=== PATIENT | male | born 1960 | race Caucasian/White ===

== ENCOUNTER → 2017-09-04 07:00 | Outpatient (CLI) | payer OTHER, SELFPAY ==
[2017-09-04 08:51] LABS: Alanine Aminotransferase 47 IU/L (21-72); Albumin Globulin Ratio 1.6 (1.0-2.8); Alkaline Phosphatase 39 U/L (38-126); Aspartate Aminotransferase 23 IU/L (17-59); BUN Creatinine Ratio 17.8 (6-22); Bilirubin Total 0.7 mg/dL (0.2-1.3); Blood Urea Nitrogen 16 mg/dL (9-20); Calcium 9.4 mg/dL (8.4-10.2); Carbon Dioxide 26 mmol/L (22-32); Chloride 104 mmol/L (98-107); Cholesterol 140 mg/dL (140-199); Estimated Glomerular Filt Rate > 60.0 mL/min (>60); Globulin 2.5 g/dL (1.7-4.1); Glucose 91 mg/dL (70-100); HDL Cholesterol 47 mg/dL (40-60); HEMOLYSIS < 15 (0-50); LDL Cholesterol Calculated 71 mg/dL (<100); Potassium 4.3 mmol/L (3.4-5.1); Sodium 141 mmol/L (137-145); Total Protein 6.5 g/dL (6.3-8.2); Triglycerides 111 mg/dL (35-150)
== END ==
PROVIDERS: PCP Family Medicine; Visit Provider Internal Medicine Cardiovascular Disease
DX: I25.10 Atherosclerotic heart disease of native coronary artery without angina pectoris (principal)
CPT/HCPCS: 36415; 80053; 80061

== ENCOUNTER → 2017-10-12 06:56 | Outpatient (CLI) | payer OTHER, SELFPAY ==
[2017-10-12 07:34] LABS: Add Manual Diff / Slide Review NO; Eosinophils Percent Auto 2.5 % (2-4); Hematocrit 43.9 % (41-53); Hemoglobin 15.3 g/dL (13.5-17.5); Mean Corpuscular HGB Conc 34.9 % (30-36); Mean Corpuscular Hemoglobin 32.1 PG (26-34); Monocytes Percent Auto 12.4 % (3-14); Neutrophils Absolute Auto 2400 /uL (3000-5900); Neutrophils Percent Auto 55.1 % (50-75); Platelet Count 214 X10^3/uL (150-400); Red Blood Cell Count 4.77 X10^6/uL (4.5-5.9); Red Cell Distribution Width 12.8 % (11.6-14.8); White Blood Cell Count 4.4 X10^3/uL (4.5-11.0)
[2017-10-12 08:28] LABS: Thyroid Stimulating Hormone 3.24 uIU/mL (0.47-4.68)
[2017-10-13 18:26] LABS: Valproic Acid (Depakene) Total 55.3 mg/L (50.0-100.0)
== END ==
PROVIDERS: PCP Family Medicine; Visit Provider Psychiatry & Neurology Psychiatry
DX: Z79.899 Other long term (current) drug therapy (principal)
CPT/HCPCS: 36415; 80164; 84443; 85025

== ENCOUNTER → 2018-04-03 07:37 | Outpatient (CLI) | payer OTHER, SELFPAY ==
[2018-04-03 09:02] LABS: Alanine Aminotransferase 113 IU/L (21-72); Albumin 4.2 g/dL (3.5-5.0); Albumin Globulin Ratio 1.6 (1.0-2.8); Alkaline Phosphatase 40 U/L (38-126); Aspartate Aminotransferase 49 IU/L (17-59); BUN Creatinine Ratio 16.7 (6-22); Bilirubin Total 0.6 mg/dL (0.2-1.3); Blood Urea Nitrogen 15 mg/dL (9-20); Calcium 9.3 mg/dL (8.4-10.2); Carbon Dioxide 27 mmol/L (22-32); Chloride 103 mmol/L (98-107); Cholesterol 117 mg/dL (140-199); Estimated Glomerular Filt Rate > 60.0 mL/min (>60); Globulin 2.6 g/dL (1.7-4.1); Glucose 98 mg/dL (70-100); HDL Cholesterol 41 mg/dL (40-60); HEMOLYSIS < 15 (0-50); LDL Cholesterol Calculated 48 mg/dL (<100); Potassium 4.1 mmol/L (3.4-5.1); Sodium 142 mmol/L (137-145); Total Protein 6.8 g/dL (6.3-8.2); Triglycerides 138 mg/dL (35-150)
== END ==
PROVIDERS: Family Provider Family Medicine; PCP Family Medicine; Visit Provider Internal Medicine Cardiovascular Disease
DX: I25.10 Atherosclerotic heart disease of native coronary artery without angina pectoris (principal)
CPT/HCPCS: 36415; 80053; 80061

== ENCOUNTER → 2019-05-22 11:40 | Outpatient (CLI) | payer OTHER, SELFPAY ==
[2019-05-22 12:19] LABS: Influenza A - CEPHEID Flu A NEGATIVE (NEGATIVE); Influenza B - CEPHEID Flu B NEGATIVE (NEGATIVE)
== END ==
PROVIDERS: Family Provider Family Medicine; PCP Family Medicine; Visit Provider Family Medicine
DX: R05 Cough (principal); R50.9 Fever, unspecified
CPT/HCPCS: 87502

== ENCOUNTER → 2019-08-19 07:08 | Outpatient (CLI) | payer OTHER, SELFPAY ==
[2019-08-19 08:19] LABS: Add Manual Diff / Slide Review NO; Basophils Absolute Auto 0 /uL (0-100); Basophils Percent Auto 0.9 % (0-2); Eosinophils Absolute Auto 100 /uL (0-450); Eosinophils Percent Auto 3.3 % (2-4); Hematocrit 43.9 % (41-53); Hemoglobin 15.3 g/dL (13.5-17.5); Lymphocytes Absolute Auto 1100 /uL (1100-4500); Lymphocytes Percent Auto 29.7 % (25-40); Mean Corpuscular HGB Conc 34.8 % (30-36); Mean Corpuscular Hemoglobin 31.9 PG (26-34); Mean Corpuscular Volume 91.6 fL (80-100); Monocytes Absolute Auto 400 /uL (0-900); Monocytes Percent Auto 10.7 % (3-14); Neutrophils Absolute Auto 2100 /uL (1500-7000); Neutrophils Percent Auto 55.4 % (50-75); Platelet Count 214 X10^3/uL (150-400); Red Blood Cell Count 4.79 X10^6/uL (4.5-5.9); Red Cell Distribution Width 12.3 % (11.6-14.8); White Blood Cell Count 3.8 X10^3/uL (4.5-11.0)
[2019-08-19 08:51] LABS: Alanine Aminotransferase 95 IU/L (<50); Albumin 4.4 g/dL (3.5-5.0); Albumin Globulin Ratio 1.7 (1.0-2.8); Alkaline Phosphatase 36 U/L (38-126); Aspartate Aminotransferase 43 IU/L (17-59); BUN Creatinine Ratio 19.7 (6-22); Bilirubin Total 0.6 mg/dL (0.2-1.3); Blood Urea Nitrogen 15 mg/dL (9-20); Calcium 9.4 mg/dL (8.4-10.2); Carbon Dioxide 25 mmol/L (22-32); Chloride 104 mmol/L (98-107); Cholesterol 121 mg/dL (140-199); Estimated Glomerular Filt Rate > 60.0 mL/min (>60); Globulin 2.6 g/dL (1.7-4.1); Glucose 100 mg/dL (80-110); HDL Cholesterol 39 mg/dL (40-60); HEMOLYSIS < 15 (0-50); LDL Cholesterol Calculated 61 mg/dL (<100); Potassium 4.2 mmol/L (3.4-5.1); Sodium 138 mmol/L (137-145); Triglycerides 104 mg/dL (35-150)
[2019-08-19 09:56] LABS: Thyroid Stimulating Hormone 2.22 uIU/mL (0.47-4.68)
[2019-08-19 23:01] LABS: Valproic Acid (Depakene) Total 54 ug/mL (50-100)
== END ==
PROVIDERS: Family Provider Family Medicine; PCP Family Medicine; Referring Provider Psychiatry & Neurology Psychiatry; Visit Provider Psychiatry & Neurology Psychiatry
DX: Z79.899 Other long term (current) drug therapy (principal)
CPT/HCPCS: 36415; 80053; 80061; 80164; 84443; 85025

== ENCOUNTER → 2020-05-04 12:19 | Outpatient (CLI) | payer OTHER, SELFPAY ==
[2020-05-04] MEDS: COVID-19 VACC #1, MRNA(MOD) 100 MCG/0.5 ML VIAL IM (12:25)
== END ==
PROVIDERS: Visit Provider Internal Medicine
DX: Z23 Encounter for immunization (principal)
CPT/HCPCS: 0011A; 91301

== ENCOUNTER → 2020-05-12 11:52 | Outpatient (CLI) | payer OTHER, SELFPAY ==
[2020-05-12 12:54] LABS: COVID19 -Nasal RAPID Negative (Negative)
== END ==
PROVIDERS: Visit Provider Physician Assistant
DX: Z01.812 Encounter for preprocedural laboratory examination (principal); Z20.822 Contact with and (suspected) exposure to COVID-19
CPT/HCPCS: 87635

== ENCOUNTER 2020-05-14 13:24 | Day surgery (SDC) | payer OTHER, SELFPAY ==
--- NOTE | 2020-05-14 | PATH_ITS ---
[facility] Accession Number: [id number] . 01 Material submitted: . sigmoid colon - SIGMOID COLON . 02 Diagnosis: Sigmoid Colon, Biopsy: Hyperplastic polyp. MRV 05/19/2020 1201 Local . 02 Electronically signed: . Alexus Dao MD, Pathologist NPI- [id number] . 01 Gross description: . SIGMOID COLON: Received in formalin is 1 fragment(s) of coles, soft tissue measuring 0.5 x 0.3 x 0.2 cm submitted entirely in 1 cassette(s) /JESUS 05/17/2020 1908 Local . 02 Pathologist provided ICD-10: K63.5 . 02 CPT . 098213 Performed at: 01 [facility] [address] [id number] MD Reinaldo Bergeron MD Phone: [phone] Performed at: 02 [facility] [place] [address] [place], [place] [id number] MD Alexus Dao MD Phone: [phone]
--- NOTE | 2020-05-14 12:23 | PM.HP.1 ---
History of Present Illness History of Present Illness Date Patient Seen: 05/14/20 Chief complaint: [facility] Narrative: 59 Years Old Male seen today for consideration of a screening colonoscopy. Last colonoscopy in 2011, significant for internal and external hemorrhoids as well as poor prep but no gross lesions. Also, had a colonoscopy prior to that that was reportedly normal and had a poor prep as well. Recall 10 years with alternative prep recommended. Recently saw Dr. Alcala on 02/19/2020 complaining of constipation. Patient reported that he has to do a colonoscopy like prep just to have a bowel movement. Normally stools 3-4 times weekly with the aid of psyllium, MiraLAX, and stool softeners. Reports to holding behavior as of child. Associated hemorrhoids, currently bleeding. This is an ongoing problem for him, better when his constipation is improved. Denies abdominal pain or anemia. There's been no family history of colon cancer or colon polyps. Overall health issues have been stable, including no major cardiac events for at least 6 weeks. 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: [employer] Education: 16 years Glass of wine/day Alcohol drinks/day: 1/day Meds Home Medications and Allergies Home Medications Medication Instructions Recorded Confirmed Type aspirin 81 mg PO QDAY #0 12/28/15 05/14/20 History ezetimibe [Zetia] 10 mg PO QDAY #30 tab 12/28/15 History gabapentin [Neurontin] 300 mg PO BID #0 12/28/15 05/14/20 History nitroglycerin [Nitrostat] 0.4 mg SUBLINGUAL PRN PRN #0 12/18/16 05/14/20 History alprazolam 1 tab PO Q8H #0 12/19/16 05/14/20 History atorvastatin [Lipitor] 40 mg PO QDAY #0 12/19/16 05/14/20 History divalproex [Depakote] 500 mg PO BID #0 12/19/16 05/14/20 History verapamil 1 tab PO QDAY #0 12/19/16 05/14/20 History Allergies Allergy/AdvReac Type Severity Reaction Status Date / Time No Known Drug Allergies Allergy Verified 05/14/20 14:01 Review of Systems Review of Systems ROS: Yes All systems reviewed with the patient and are negative except as otherwise documented Exam Narrative Exam Narrative: General: well developed, well nourished, in no acute distress, Head: normocephalic and atraumatic, Lungs: normal respiratory effort, clear bilaterally to auscultation, no wheezes rales or rhonchi. Heart: normal rate and regular rhythm, no murmurs, rubs, gallops, or clicks, Abdomen: abdomen soft and non-tender without masses, organomegaly, or abdominal wall hernias, bowel sounds positive. Skin: intact without suspicious lesions or rashes, Psych: alert and cooperative; normal mood and affect; normal attention span and concentration; cognition, remote and recent memory appear to be intact, Assessment & Plan Assessment & Plan narrative: 1. Constipation 2. Hemorrhoids 3. Screening for colon cancer Plan for colonoscopy. The nature and character of the procedure as well as anticipated results were discussed. The possibility of not completing the procedure was also discussed. Possible complications including aspiration pneumonia, bleeding, perforation and reaction to medications either for sedation or preparation and missed lesions were discussed. Questions were answered and proceeding to the colonoscopy was elected. Informed consent signed. I sincerely appreciate the referral allowing me to participate in this patient's care. Please contact me with any questions or concerns.
--- NOTE | 2020-05-14 12:24 | PM.OP.ENDO ---
Operative Date/Time/Diagnoses Date of procedure: 05/14/20 Procedure Notes SCOAP/Timeout: 3:39 pm Procedure in detail: ENDOSCOPIST: Reina Mayfield MD Sedation RN: Michelle Fair RN Sedation start time: 3:40 p.m. Sedation end time: 4:13 p.m. PROCEDURE: Colonoscopy with biopsy INDICATIONS: 1. Constipation 2. Hemorrhoids 3. Screening for colon cancer MEDICATION: Levsin 0.125 mg sublingual, incremental doses of Versed and fentanyl until appropriate level sedation achieved. ASA CLASS: 2 CECAL WITHDRAWAL TIME: 9 minutes COMPLICATIONS: None. EXTENT OF PROCEDURE: Cecum. QUALITY OF PREP: Good with portions of liquid stool. PROCEDURE: Prior to insertion of the colonoscope, a digital rectal examination was accomplished with circumferential palpation of the distal rectal mucosa without significant findings being noted. The high-definition colonoscope was passed into the rectum in the usual fashion and advanced over to the cecum without difficulty. The ileocecal valve, appendiceal stoma, and medial wall all could be inspected and no abnormalities were seen. ASCENDING COLON: As the colonoscope was withdrawn, care was taken to expose and inspect the haustral folds and no abnormalities were seen. HEPATIC FLEXURE: Normal, no polyps, diverticula or other abnormalities. TRANSVERSE COLON: Normal, no polyps, diverticula or other abnormalities. DESCENDING COLON: Normal, no polyps, diverticula or other abnormalities. SIGMOID COLON: 2 mm polyp removed with cold biopsy forceps, otherwise, no diverticula or other abnormalities. RECTUM: Normal. J maneuver was produced. There was no significant perianal disease. The J maneuver was broken. The remainder of the rectum was inspected and there was minor external hemorrhoid disease. The scope was withdrawn. IMPRESSION: 1. Sigmoid polyp x1, 2 mm, removed with cold biopsy forceps 2. External hemorrhoids, mild PLAN: 1. Follow-up in clinic status post pathology results. The possibility of a missed lesion including a malignancy has been discussed with the patient previously. Potential alarm symptoms have been discussed and should be reported immediately.
[2020-05-14] MEDS: LACTATED RINGERS 1,000 ML 200 ML IV (14:12)
[2020-05-14] MEDS: HYOSCYAMINE 0.125 MG TABLET PO (14:27)
[2020-05-14 14:28] VITALS: BP 135/81; PULSE 71; RESP 20; TEMP 36.4; O2SAT 96; BMI 35.2
[2020-05-14] MEDS: MIDAZOLAM 5 MG/5 ML VIAL IV (15:47)
[2020-05-14] MEDS: fentaNYL 250 MCG/5 ML INJ IV (15:53)
[2020-05-14 16:17] VITALS: BP 147/89; PULSE 73; RESP 12; TEMP 37.3; O2SAT 96
[2020-05-14 16:22] VITALS: BP 142/89; PULSE 80; RESP 16; O2SAT 98
[2020-05-14 16:27] VITALS: BP 146/93; PULSE 76; RESP 12; O2SAT 97
[2020-05-14 16:34] VITALS: BP 147/95; PULSE 74; RESP 16; TEMP 37; O2SAT 96
== END 2020-05-14 16:50 | disposition home or self-care (01) ==
PROVIDERS: Referring Provider Student in an Organized Health Care Education/Training Program; Visit Provider Student in an Organized Health Care Education/Training Program
PROC: 0DJD8ZZ Inspection of Lower Intestinal Tract, Via Natural or Artificial Opening Endoscopic (ICD-10-PCS; CPT 45378; principal; 2020-05-14 15:15)
DX: K59.00 Constipation, unspecified (principal); K21.9 Gastro-esophageal reflux disease without esophagitis; E78.5 Hyperlipidemia, unspecified; F32.9 Major depressive disorder, single episode, unspecified; K64.4 Residual hemorrhoidal skin tags; K63.5 Polyp of colon
CPT/HCPCS: 45380; J2250; J3010

== ENCOUNTER → 2020-06-01 12:26 | Outpatient (CLI) | payer OTHER, SELFPAY ==
[2020-06-01] MEDS: COVID-19 VACC #2, MRNA(MOD) 100 MCG/0.5 ML VIAL IM (12:36)
== END ==
PROVIDERS: Visit Provider Internal Medicine
DX: Z23 Encounter for immunization (principal)
CPT/HCPCS: 0012A; 91301

== ENCOUNTER 2020-08-22 17:46 | Observation (INO) | payer OTHER, SELFPAY ==
[2020-08-22] VITALS (7 sets, daily range): BP systolic 122–179; BP diastolic 48–86; PULSE 64–78; RESP 11–25; TEMP 36.4–36.7; O2SAT 96–99; BMI 27.8
--- NOTE | 2020-08-22 17:56 | DI.CT.S_ITS ---
PROCEDURE: CT HEAD/BRAIN WO CON INDICATIONS: vision changes withheadache TECHNIQUE: Noncontrast 4.5 mm thick angled axial sections acquired from the foramen magnum to the vertex, with coronal and sagittal reformats. For radiation dose reduction, the following was used: automated exposure control, adjustment of mA and/or kV according to patient size. COMPARISON: CT, HEAD WITHOUT CONTRAST, 06/13/2010, 11:02. FINDINGS: Image quality: Excellent. CSF spaces: Basal cisterns are patent. No extra-axial fluid collections. Ventricles are normal in size and shape. Brain: No midline shift. No intracranial hemorrhage. Duran-white matter interface is normal. Hypoattenuation is noted the posterior fossa suggestive of arachnoid cyst. Skull and face: Calvarium and visualized facial bones are intact, without suspicious lesions. Sinuses: Visualized sinuses and mastoids are clear. IMPRESSION: 1. No acute intracranial process. Dictated by: Chiara Cope M.D. on 08/22/2020 at 18:15 Approved by: Chiara Cope M.D. on 08/22/2020 at 18:16
--- NOTE | 2020-08-22 18:03 | ED_ITS ---
HPI - General Adult General Chief complaint: Neuro Symptoms/Deficit Stated complaint: vision issues, since 1714,blurry, lines Time Seen by Provider: 08/22/20 17:54 Source: patient Mode of arrival: Ambulatory Limitations: no limitations History of Present Illness HPI narrative: Patient is a 60-year-old male. Has a history of coronary artery disease. Had a stent placed several years ago but states that he never had a heart attack prior to this. No history of stroke. Not on anticoagulation. Has never had any procedures performed on his eyes however he does wear corrective lenses. He states that approximately 515 this afternoon he was looking at something on his 's phone when he had some vision disturbances. It is somewhat difficult for him to describe but he states that there were horizontal lines in his vision. There were multiple of these lines. He felt like the objects above the lines and below the lines did not match up. They are also very blurry. Since that time he has also developed a slight headache. At the time of my evaluation he thought that the vision issues had improved since the onset however they were not completely resolved. He did state that they were present whenever he closed each of his eyes individually. He thought it was potentially the phone that he was looking at so he looked to TV screen insult the same disturbances. He does have ringing in his ears but this is not new for him. He has been taking all of his medications as directed. There are no reports of any speech disturbances. Related Data Home Medications Medication Instructions Recorded Confirmed aspirin 81 mg PO QDAY #0 12/28/15 08/22/20 ezetimibe [Zetia] 10 mg PO QDAY #30 tab 12/28/15 08/22/20 gabapentin [Neurontin] 300 mg PO BID #0 12/28/15 08/22/20 nitroglycerin [Nitrostat] 0.4 mg SUBLINGUAL PRN PRN #0 12/18/16 08/22/20 alprazolam 1 tab PO Q8H #0 12/19/16 05/14/20 atorvastatin [Lipitor] 40 mg PO QDAY #0 12/19/16 05/14/20 divalproex [Depakote] 500 mg PO BID #0 12/19/16 08/22/20 verapamil 1 tab PO QDAY #0 12/19/16 08/22/20 clonazepam 0.25 mg PO BEDTIME 08/22/20 08/22/20 rosuvastatin 40 mg PO BEDTIME 08/22/20 08/22/20 Allergies Allergy/AdvReac Type Severity Reaction Status Date / Time No Known Drug Allergies Allergy Verified 08/22/20 17:58 Review of Systems Constitutional Constitutional: Denies chills, Denies fever(s) and Reports headache(s) Eyes Eyes: Reports blurry vision and Reports change in vision ENT Ears, Nose, Mouth, and Throat: Denies vertigo, Denies dizziness, Reports hea dache(s) and Denies sore throat Cardiovascular Cardiovascular: Denies chest pain and Denies dyspnea Respiratory Respiratory: Denies dyspnea Gastrointestinal Gastrointestinal: Denies abdominal pain, Denies nausea and Denies vomiting Musculoskeletal Musculoskeletal: Denies arthralgias and Denies myalgias Integumentary/Breasts Skin/Breast: Denies rash Neurologic Neurologic: Denies abnormal speech, Denies vertigo, Denies dizziness and Reports headache(s) Psychiatric Psychiatric: Denies anxiety Endocrine Endocrine: Reports system reviewed and no additional complaints, except as documented Hematologic/Lymphatic On Anticoagulants: No Allergic/Immunologic Allergic/Immunologic: Reports system reviewed and no additional complaints, except as documented Patient History Medical History Acute coronary syndrome Anxiety Social History household members: spouse Smoking Status: Never smoker Smoking Status: Never smoker alcohol intake frequency: a few times a month Alcohol type: wine Substance Use Type: does not use Exam Initial Vital Signs Initial Vital Signs: Vital Signs Temperature 98 F 08/22/20 17:55 Pulse Rate 78 08/22/20 17:55 Respiratory Rate 12 08/22/20 17:55 Blood Pressure 179/86 H 08/22/20 17:55 Pulse Oximetry 99 08/22/20 17:55 Const General: cooperative, healthy appearing and comfortable Limitations: mental status not altered HENTX Head: normal to inspection and normocephalic Ears: hearing grossly normal bilaterally Face and sinus: normal facial exam Mouth: oral mucosae normal Eyes General: appearance normal, both eyes and all related structures Pupils: PERRL EOM: EOM intact bilaterally Resp Effort & Inspection: normal respiratory effort Auscultation: clear to auscultation bilaterally Cardio Rate: regular rate Rhythm: regular rhythm GI Inspection: non-distended Palpation: soft and No firm Skin Lesions: no lesions Rashes: no rashes Neuro General: patient alert, patient awake and patient oriented x3 Cranial Nerves: PERRL Cognition: normal cognition Speech: speech normal Gait: normal gait Motor: muscle tone normal throughout Sensory Exam: no sensory deficits noted Extrem General: normal to inspection and capillary refill normal Psych Appearance: grossly normal and well kempt Scores GCS Cressey coma scale eye opening: Spontaneous Kristyn coma scale verbal response: Orientated Cressey coma scale motor response: Obey commands Cressey coma scale total score: 15 NIH Stroke Scale Level of Conciousness: Alert, keenly responsive Ask month/age: Answers both questions correctly. Open/close eyes, close hand: Performs both tasks correctly Best gaze horizontal: Normal Visual hayes: No visual loss Facial palsy: Normal symetrical movement Left arm drift: No drift for full 10 sec Right arm drift: No drift for full 10 sec Left leg drift: No drift for full 5 sec Right leg drift: No drift for full 5 sec Limb ataxia: Absent Sensory on face/arms/legs: Normal, no sensory loss Best language: No aphasia, normal Dysarthria: Normal Extinction or inattention: No abnormality Total NIH Stroke scale score: 0 Course Orders Ordered: ED Orders 08/22/20 17:56 CT head/brain wo con Stat EKG-12 Lead Stat 08/22/20 18:12 C-Reactive Protein Quant Stat Complete Blood Count AUTO DIFF Stat Comprehensive Metabolic Panel Stat Erythrocyte Sedimentation Rate Stat Ethanol (ETOH) Stat Lipase Stat Partial Thromboplastin Time Stat Prothrombin Time INR Stat Troponin & CK Cardiac Panel Stat 08/22/20 19:50 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) Stat 08/22/20 19:52 Consult to Physician Urgent 08/22/20 19:53 Consult to Physician Stat MR stroke Stat Acetaminophen (Acetaminophen 325 Mg Tablet) 650 mg PO Q6HR PRN PRN Reason: Fever/Mild Pain (1-3) Alprazolam (Alprazolam 0.25 Mg Tablet) 0.25 mg PO Q8H [facility] Last Admin: 08/22/20 21:30 Dose: 0.25 mg Documented by: CTRNATANAEL Divalproex Sodium (Divalproex Dr 250 Mg Tablet) 500 mg PO BID [facility] Last Admin: 08/22/20 21:30 Dose: 500 mg Documented by: ABBY Gabapentin (Gabapentin 300 Mg Capsule) 300 mg PO BID [facility] Last Admin: 08/22/20 21:30 Dose: 300 mg Documented by: ABBY Lorazepam (Lorazepam 0.5 Mg Tablet) 0.5 mg PO Q4HR PRN PRN Reason: Anxiety Verapamil HCl (Verapamil Sr 120 Mg Tablet) 120 mg PO DAILY FARRAH Discontinued Medications Aspirin (Aspirin 81 Mg Chew Tab) 324 mg PO NOW ONE Stop: 08/22/20 19:54 Last Admin: 08/22/20 20:00 Dose: 324 mg Documented by: BRYAN Non-Formulary Medication (Divalproex [Depakote]) 500 mg PO BID [facility] Vital Signs Vital signs: Vital Signs - 8 hr 08/22/20 17:55 08/22/20 18:13 08/22/20 18:30 Temperature 98 F Pulse Rate 78 73 73 Respiratory Rate 12 11 L Blood Pressure 179/86 H Pulse Oximetry 99 99 96 08/22/20 19:00 08/22/20 19:30 Temperature Pulse Rate 73 75 Respiratory Rate 25 H Blood Pressure 132/82 Pulse Oximetry 97 96 Medical Decision Making Lab Data Lab results reviewed: Yes I reviewed the patient's lab results. Result diagrams: 08/22/20 18:12 08/22/20 18:12 Labs: Lab Results 08/22/20 08/22/20 08/22/20 Range/Units 18:12 18:12 18:12 WBC 6.5 (4.5-11.0) X10^3/uL RBC 4.76 (4.5-5.9) X10^6/uL Hgb 15.3 (13.5-17.5) g/dL Hct 43.9 (41-53) % MCV 92.1 (80-100) fL MCH 32.1 (26-34) PG MCHC 34.8 (30-36) % RDW 12.4 (11.6-14.8) % Plt Count 204 (150-400) X10^3/uL Neut % (Auto) 55.1 (50-75) % Lymph % (Auto) 32.0 (25-40) % Dillon % (Auto) 9.8 (3-14) % Eos % (Auto) 2.4 (2-4) % Baso % (Auto) 0.7 (0-2) % Neut # (Auto) 3600 (5104-4980) /uL Lymph # (Auto) 2100 (5164-4919) /uL Dillon # (Auto) 600 (0-900) /uL Eos # (Auto) 200 (0-450) /uL Baso # (Auto) 0 (0-100) /uL ESR (0-15) MM/HR PT 11.5 (10.1-12.7) SECONDS INR 1.0 (0.9-1.3) APTT 32 (26.4-36.2) SECONDS Sodium 137 (137-145) mmol/L Potassium 3.9 (3.4-5.1) mmol/L Chloride 103 (98-107) mmol/L Carbon Dioxide 27 (22-32) mmol/L BUN 21 H (9-20) mg/dL Creatinine 0.81 (0.66-1.25) mg/dL Estimated GFR > 60.0 (>60) mL/min BUN/Creatinine Ratio 25.9 H (6-22) Glucose 118 H (80-110) mg/dL Calcium 10.0 (8.4-10.2) mg/dL Total Bilirubin 0.4 (0.2-1.3) mg/dL AST 40 (17-59) IU/L ALT 64 H (<50) IU/L Alkaline Phosphatase 38 (38-126) U/L Total Creatine Kinase 136 (55-170) U/L CK-MB (CK-2) 1.14 (<2.37) ng/mL CK-MB (CK-2) Rel Index 0.8 L (1.5-5.0) % Troponin I < 0.012 (0.01-0.034) ng/mL C-Reactive Protein (<1.0) mg/dL Total Protein 7.1 (6.3-8.2) g/dL Albumin 4.4 (3.5-5.0) g/dL Globulin 2.7 (1.7-4.1) g/dL Albumin/Globulin Ratio 1.6 (1.0-2.8) Lipase 132 (23-300) U/L Ethyl Alcohol < 10 ( - 10) mg/dL SARS-CoV-2 (PCR) (Negative) 08/22/20 08/22/20 08/22/20 Range/Units 18:12 18:12 19:50 WBC (4.5-11.0) X10^3/uL RBC (4.5-5.9) X10^6/uL Hgb (13.5-17.5) g/dL Hct (41-53) % MCV (80-100) fL MCH (26-34) PG MCHC (30-36) % RDW (11.6-14.8) % Plt Count (150-400) X10^3/uL Neut % (Auto) (50-75) % Lymph % (Auto) (25-40) % Dillon % (Auto) (3-14) % Eos % (Auto) (2-4) % Baso % (Auto) (0-2) % Neut # (Auto) (6356-5019) /uL Lymph # (Auto) (3910-3448) /uL Dillon # (Auto) (0-900) /uL Eos # (Auto) (0-450) /uL Baso # (Auto) (0-100) /uL ESR 1 (0-15) MM/HR PT (10.1-12.7) SECONDS INR (0.9-1.3) APTT (26.4-36.2) SECONDS Sodium (137-145) mmol/L Potassium (3.4-5.1) mmol/L Chloride (98-107) mmol/L Carbon Dioxide (22-32) mmol/L BUN (9-20) mg/dL Creatinine (0.66-1.25) mg/dL Estimated GFR (>60) mL/min BUN/Creatinine Ratio (6-22) Glucose (80-110) mg/dL Calcium (8.4-10.2) mg/dL Total Bilirubin (0.2-1.3) mg/dL AST (17-59) IU/L ALT (<50) IU/L Alkaline Phosphatase (38-126) U/L Total Creatine Kinase (55-170) U/L CK-MB (CK-2) (<2.37) ng/mL CK-MB (CK-2) Rel Index (1.5-5.0) % Troponin I (0.01-0.034) ng/mL C-Reactive Protein < 0.5 (<1.0) mg/dL Total Protein (6.3-8.2) g/dL Albumin (3.5-5.0) g/dL Globulin (1.7-4.1) g/dL Albumin/Globulin Ratio (1.0-2.8) Lipase (23-300) U/L Ethyl Alcohol ( - 10) mg/dL SARS-CoV-2 (PCR) Negative (Negative) Imaging Data CT scan - head: Radiologist's Impression: [address] [id number] Scan ReportSigned Patient: Hermelindo De Souza JMR#: [id number]: 9Acct:[id number]/Sex: 60 / MDate of Service: 08/22/20Loc: EDAccession Number: [id number] Procedure: CT head/brain wo con Ordering Provider: Sebastian Son D.O. PROCEDURE: CT HEAD/BRAIN WO CON INDICATIONS: vision changes withheadache TECHNIQUE: Noncontrast 4.5 mm thick angled axial sections acquired from the foramen magnum to the vertex, with coronal and sagittal reformats. For radiation dose reduction, the following was used: automated exposure control, adjustment of mA and/or kV according to patient size. COMPARISON: CT, HEAD WITHOUT CONTRAST, 06/13/2010, 11:02. FINDINGS: Image quality: Excellent. CSF spaces: Basal cisterns are patent. No extra-axial fluid collections. Ventricles are normal in size and shape. Brain: No midline shift. No intracranial hemorrhage. Duran-white matter interface is normal. Hypoattenuation is noted the posterior fossa suggestive of arachnoid cyst. Skull and face: Calvarium and visualized facial bones are intact, without suspicious lesions. Sinuses: Visualized sinuses and mastoids are clear. IMPRESSION: 1. No acute intracranial process. Dictated by: Chiara Cope M.D. on 08/22/2020 at 18:15 Approved by: Chiara Cope M.D. on 08/22/2020 at 18:16 ECG Data Attestation: I personally reviewed and interpreted this ECG as follows: Prior ECG tracings: not available for review Interpretation: Sinus rhythm Ventricular rate is 76 One PVC Normal QRS Normal QTC Incomplete right bundle-branch block No ST T wave changes MDM Narrative Medical decision making narrative: Patient is a NIH score of 0. His head CT is unremarkable. EKG is unremarkable. Labs are unremarkable. Upon reexamination he reports that his symptoms have even improved since arrival here to the ER but again are not completely gone. I do feel that the patient requires an MRI for further evaluation. We are unable to get that of the emergency department at this time of day. Discussed the case with Dr. Wilkerson who is on-call for the patient's primary provider and we will admit for further evaluation and treatment. Did discuss this with the patient as well and he expressed underst anding agreement. Discharge Plan Departure Patient Disposition: Admitted as Observation Clinical Impression: Transient cerebral ischemia, Vision disturbance Admit Date/Time: 08/22/20 20:44 Admit Provider: Andrea Nevarez
[2020-08-22 18:26] LABS: Add Manual Diff / Slide Review NO; Basophils Absolute Auto 0 /uL (0-100); Basophils Percent Auto 0.7 % (0-2); Eosinophils Absolute Auto 200 /uL (0-450); Eosinophils Percent Auto 2.4 % (2-4); Hematocrit 43.9 % (41-53); Hemoglobin 15.3 g/dL (13.5-17.5); Lymphocytes Absolute Auto 2100 /uL (1100-4500); Mean Corpuscular HGB Conc 34.8 % (30-36); Mean Corpuscular Hemoglobin 32.1 PG (26-34); Mean Corpuscular Volume 92.1 fL (80-100); Monocytes Absolute Auto 600 /uL (0-900); Monocytes Percent Auto 9.8 % (3-14); Neutrophils Absolute Auto 3600 /uL (1500-7000); Neutrophils Percent Auto 55.1 % (50-75); Platelet Count 204 X10^3/uL (150-400); Red Blood Cell Count 4.76 X10^6/uL (4.5-5.9); Red Cell Distribution Width 12.4 % (11.6-14.8); White Blood Cell Count 6.5 X10^3/uL (4.5-11.0)
[2020-08-22 18:40] LABS: Prothrombin Time 11.5 SECONDS (10.1-12.7)
[2020-08-22 18:43] LABS: Alanine Aminotransferase 64 IU/L (<50); Albumin 4.4 g/dL (3.5-5.0); Albumin Globulin Ratio 1.6 (1.0-2.8); Alkaline Phosphatase 38 U/L (38-126); Aspartate Aminotransferase 40 IU/L (17-59); BUN Creatinine Ratio 25.9 (6-22); Bilirubin Total 0.4 mg/dL (0.2-1.3); Blood Urea Nitrogen 21 mg/dL (9-20); Carbon Dioxide 27 mmol/L (22-32); Chloride 103 mmol/L (98-107); Creatine Kinase 136 U/L (55-170); Estimated Glomerular Filt Rate > 60.0 mL/min (>60); Ethanol (ETOH) < 10 mg/dL; Globulin 2.7 g/dL (1.7-4.1); Glucose 118 mg/dL (80-110); HEMOLYSIS 19 (0-50); Lipase 132 U/L (23-300); PTT Partial Thromboplastin Tim 32 SECONDS (26.4-36.2); Potassium 3.9 mmol/L (3.4-5.1); Sodium 137 mmol/L (137-145); Total Protein 7.1 g/dL (6.3-8.2)
[2020-08-22 18:53] LABS: Troponin I < 0.012 ng/mL (0.01-0.034)
[2020-08-22 18:57] LABS: CKMB % Relative Index 0.8 % (1.5-5.0); Creatine Kinase MB 1.14 ng/mL (<2.37)
--- NOTE | 2020-08-22 19:33 | PC.NURSE ---
Patient reports some improvement in vision, reports still slightly blurry but white lines and peripheral disturbances have subsided. Denies double vision
--- NOTE | 2020-08-22 19:53 | DI.MRI.S_ITS ---
PROCEDURE: MR STROKE Pre- and post-contrast brain MRI, non-contrast brain MR angiogram, pre- and postcontrast neck MR angiogram INDICATIONS: Vision changes eval for stroke TECHNIQUE: Brain: Noncontrast axial T1 spin echo, axial T2 fast spin echo, sagittal and axial FLAIR, coronal T2 fast spin echo, axial gradient echo, axial diffusion and ADC through the brain. After the administration of contrast, axial 3D VIBE of the cranial vasculature and brain. Brain MRA: Non-contrast 3-D time of flight MR angiogram, with multiple tudlrrt-luaafiiju-qynwhudijc (MIP) reformats performed. Neck MRA: Axial and sagittal TruFISP through the neck. Coronal dynamic MR angiogram during administration of contrast in the arterial and venous phases, with 3-dimenstional ltpijfg-ukqzepkwg-rhrwiaedee (MIP) reformats constructed from subtraction images. COMPARISON: [facility], CT, CT HEAD/BRAIN WO CON, 08/22/2020, 18:00. FINDINGS: Image quality: Excellent. BRAIN: CSF spaces: Ventricles are normal in size and shape. Basal cisterns are patent. No extra-axial fluid collections. Brain: No intracranial bleeds or mass effects. Duran-white matter interface is normal. Diffusion weighted images show no acute ischemic insults. Brainstem appears normal. Normal intravascular flow voids are present. No abnormal intracranial enhancement. Skull and face: Calvarial marrow signal is normal. Orbits appear normal. Sinuses: Sinuses and mastoids are clear. BRAIN MR ANGIOGRAM: Anterior circulation: Intracranial internal carotid arteries are normal in size and enhancement. The flow within the paired anterior cerebral arteries is normal and symmetric. The flow within the middle cerebral arteries is normal and symmetric. The anterior communicating artery is seen. No stenoses, occlusions, or aneurysms. Posterior circulation: The visualized portions of the vertebral arteries demonstrate normal caliber, and join to form a normal appearing basilar artery. The flow within the posterior cerebral arteries is normal and symmetric. No stenoses, occlusions, or aneurysms. NECK MR ANGIOGRAM: Carotids: Great vessels demonstrate a conventional anatomy as they arise from the aortic arch. The origins of the common carotid arteries appear patent. The calibers and courses of both common carotid arteries are normal. The bifurcation regions appear normal bilaterally. The internal carotid arteries demonstrate normal course and caliber. Posterior circulation: The origins of the vertebral arteries appear patent. More superior portions of both vertebral arteries demonstrate normal course and caliber, and join to form a normal appearing basilar artery. Miscellaneous: Subclavian arteries appear patent. Pre-contrast images through the neck show no soft tissue abnormalities. IMPRESSION: BRAIN MRI: No acute infarct or other acute intracranial abnormality. BRAIN MR ANGIOGRAM: No large vessel occlusion or hemodynamically significant narrowing of the major intracranial arterial circulation. NECK MR ANGIOGRAM: No hemodynamically significant narrowing of the major extracranial arterial circulation. Dictated by: Kemar Ventura M.D. on 08/23/2020 at 11:28 Approved by: Kemar Ventura M.D. on 08/23/2020 at 11:32
[2020-08-22] MEDS: ASPIRIN 81 MG CHEW TAB 324 MG PO (20:00)
[2020-08-22 20:14] LABS: C-Reactive Protein Quant < 0.5 mg/dL (<1.0)
[2020-08-22 20:29] LABS: Erythrocyte Sedimentation Rate 1 MM/HR (0-15)
[2020-08-22 20:55] LABS: COVID19 - ADMIT (NP swab/PCR) Negative (Negative)
[2020-08-22] MEDS: DIVALPROEX DR 250 MG TABLET 500 MG PO (21:30)
[2020-08-22] MEDS: GABAPENTIN 300 MG CAPSULE PO (21:30)
[2020-08-22] MEDS: ALPRAZolam 0.25 MG TABLET PO (21:30)
--- NOTE | 2020-08-22 21:37 | PM.HP.1 ---
History of Present Illness History of Present Illness Date Patient Seen: 08/22/20 Time Patient Seen: 21:37 Date of Onset of Symptoms: 08/22/20 Chief complaint: vision issues, since 1714,blurry, lines Narrative: 60-year-old male presents to emergency department with complaints of visual changes and a slight headache. Patient was in his usual state of health today he was at home and when his handed his phone to him and he looked at it he saw horizontal once that were shifting. They were in his entire vision and then his eyes became blurry in the knee had sensation of halo with the horizontal lines in the periphery. This then resolved and he developed a dull headache and he still has a headache. He has no associated symptoms. He had no dysarthria or difficulty swallowing or difficulty with motor or fine motor or gait. He had no associated chest pain shortness breath palpitations lightheadedness dizziness. No neurologic symptoms. He was recently started on pramipexole by his psychiatrist for concern about early Parkinson's disease. He recently saw his new PCP in the last month. Past medical history: 1. Bipolar disorder 2. Coronary artery disease status post PTCA and stent in 2016 without further problems 3. Hyperlipidemia 4. GERD 5. Colonic polyps, recent colonoscopy was in May of 2020 showing benign polyps 6. Constipation 7. Shingles Allergies no known drug allergies Medications: Rosuvastatin 40 mg daily Zetia 10 mg daily Verapamil 120 mg daily Gabapentin 300 mg twice daily Depakote ER 500 mg twice daily Clonazepam 0.25 mg as needed Nitrostat as needed Aspirin 81 mg daily Past surgical history 1. 2000 he had a sinus surgery 2001 he had a knee surgery He has had 2 colonoscopies Family history: Father likely had bipolar but was not treated. 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 He is originally from [place] town there and has lived in and a [place] for last 20 years and works from home. He is and lives with his in [facility] He has 1 child Health related behavior he has 1 glass 1 a day Does not smoke Does not use illicit drugs Had tetanus shot 07/29/2020 Pneumovax [id number] Shingrix vaccine 06/18/2027 and 09/23/2019 COVID vaccine 05/04/2020 and 06/01/2020 Review of systems: Negative for chest pain, palpitations, lightheadedness, dizziness Negative for any neurologic symptoms Recently started on pramipexole No GI or problems Patient History Family & Social History Social History: household members spouse Safety & Behavioral: Feels Safe in Current Yes Environment Been Physically Hurt or No Threatened By a Person Tobacco & Substance use: Smoking Status Never smoker alcohol intake frequency a few times a month Substance Use Type does not use Meds Home Medications and Allergies Home Medications Medication Instructions Recorded Confirmed Type aspirin 81 mg PO QDAY #0 12/28/15 08/22/20 History ezetimibe [Zetia] 10 mg PO QDAY #30 tab 12/28/15 08/22/20 History gabapentin [Neurontin] 300 mg PO BID #0 12/28/15 08/22/20 History nitroglycerin [Nitrostat] 0.4 mg SUBLINGUAL PRN PRN #0 12/18/16 08/22/20 History alprazolam 1 tab PO Q8H #0 12/19/16 05/14/20 History atorvastatin [Lipitor] 40 mg PO QDAY #0 12/19/16 05/14/20 History divalproex [Depakote] 500 mg PO BID #0 12/19/16 08/22/20 History verapamil 1 tab PO QDAY #0 12/19/16 08/22/20 History clonazepam 0.25 mg PO BEDTIME 08/22/20 08/22/20 History rosuvastatin 40 mg PO BEDTIME 08/22/20 08/22/20 History Allergies Allergy/AdvReac Type Severity Reaction Status Date / Time No Known Drug Allergies Allergy Verified 08/22/20 17:58 Review of Systems Review of Systems Narrative: Negative other than HPI Exam Vital Signs (past 8 hours): - 08/22/20 17:55 08/22/20 18:13 08/22/20 18:30 Temperature 98 F Pulse Rate 78 73 73 Respiratory Rate 12 11 L Blood Pressure 179/86 H Pulse Oximetry 99 99 96 08/22/20 19:00 08/22/20 19:30 Temperature Pulse Rate 73 75 Respiratory Rate 25 H Blood Pressure 132/82 Pulse Oximetry 97 96 Oxygen Delivery Method Room Air Narrative Exam Narrative: Afebrile, vital signs are stable. Blood pressure is now down to normal. Patient appears very healthy and younger than stated age. He is lying comfortably in the hospital bed in his excellent historian HEENT: Unremarkable Neck: Supple without adenopathy Chest: Clear to auscultation without wheezes rhonchi or crackles Cor: Regular rate and rhythm without any murmurs Abdomen: Positive bowel sounds, soft, nontender, nondistended Extremities: No edema, pulses intact Neurologic exam is within normal limits. Cranial nerves 2-12 are intact. Romberg is negative. Heel to hays and [id number] are negative. No evidence of cogwheeling. Strength is symmetric and intact bilateral upper and lower extremities and sensations intact to light touch as well as DTRs. Skin no rashes Objective Labs Result Diagrams: 08/22/20 18:12 08/22/20 18:12 Labs: Laboratory Results - last 24 hr 08/22/20 08/22/20 08/22/20 18:12 18:12 18:12 WBC 6.5 RBC 4.76 Hgb 15.3 Hct 43.9 MCV 92.1 MCH 32.1 MCHC 34.8 RDW 12.4 Plt Count 204 Neut % (Auto) 55.1 Lymph % (Auto) 32.0 [place] % (Auto) 9.8 Eos % (Auto) 2.4 Baso % (Auto) 0.7 Neut # (Auto) 3600 Lymph # (Auto) 2100 [place] # (Auto) 600 Eos # (Auto) 200 Baso # (Auto) 0 ESR PT 11.5 INR 1.0 APTT 32 Sodium 137 Potassium 3.9 Chloride 103 Carbon Dioxide 27 BUN 21 H Creatinine 0.81 Estimated GFR > 60.0 BUN/Creatinine Ratio 25.9 H Glucose 118 H Calcium 10.0 Total Bilirubin 0.4 AST 40 ALT 64 H Alkaline Phosphatase 38 Total Creatine Kinase 136 CK-MB (CK-2) 1.14 CK-MB (CK-2) Rel Index 0.8 L Troponin I < 0.012 C-Reactive Protein Total Protein 7.1 Albumin 4.4 Globulin 2.7 Albumin/Globulin Ratio 1.6 Lipase 132 Ethyl Alcohol < 10 SARS-CoV-2 (PCR) 08/22/20 08/22/20 08/22/20 18:12 18:12 19:50 WBC RBC Hgb Hct MCV MCH MCHC RDW Plt Count Neut % (Auto) Lymph % (Auto) [place] % (Auto) Eos % (Auto) Baso % (Auto) Neut # (Auto) Lymph # (Auto) [place] # (Auto) Eos # (Auto) Baso # (Auto) ESR 1 PT INR APTT Sodium Potassium Chloride Carbon Dioxide BUN Creatinine Estimated GFR BUN/Creatinine Ratio Glucose Calcium Total Bilirubin AST ALT Alkaline Phosphatase Total Creatine Kinase CK-MB (CK-2) CK-MB (CK-2) Rel Index Troponin I C-Reactive Protein < 0.5 Total Protein Albumin Globulin Albumin/Globulin Ratio Lipase Ethyl Alcohol SARS-CoV-2 (PCR) Negative Assessment & Plan Assessment & Plan narrative: 60-year-old male with possible TIA versus new onset of migraine with aura Will admit to the hospital for further monitoring. We will do MRI MRA in a.m.. Will keep plan on telemetry tonight. Will hold the [employer] tonight 2. Coronary artery disease without any current issues Plan continue outpatient medications of verapamil, rosuvastatin and Zetia 3. Hyperlipidemia no issues. Plan continue outpatient medications Assessment number for bipolar disorder with no acute issues Plan: Continue with gabapentin and Depakote. We will check a Depakote level in a.m.. Code status is full code
[2020-08-22] MEDS: ACETAMINOPHEN 325 MG TABLET 650 MG PO (22:36)
[2020-08-23 04:51] LABS: Add Manual Diff / Slide Review NO; Basophils Absolute Auto 0 /uL (0-100); Basophils Percent Auto 0.7 % (0-2); Eosinophils Absolute Auto 200 /uL (0-450); Eosinophils Percent Auto 3.6 % (2-4); Hematocrit 41.9 % (41-53); Hemoglobin 14.7 g/dL (13.5-17.5); Lymphocytes Absolute Auto 1700 /uL (1100-4500); Lymphocytes Percent Auto 38.7 % (25-40); Mean Corpuscular Hemoglobin 32.2 PG (26-34); Mean Corpuscular Volume 91.9 fL (80-100); Monocytes Absolute Auto 400 /uL (0-900); Monocytes Percent Auto 10.4 % (3-14); Neutrophils Absolute Auto 2000 /uL (1500-7000); Neutrophils Percent Auto 46.6 % (50-75); Platelet Count 195 X10^3/uL (150-400); Red Blood Cell Count 4.56 X10^6/uL (4.5-5.9); Red Cell Distribution Width 12.5 % (11.6-14.8); White Blood Cell Count 4.3 X10^3/uL (4.5-11.0)
[2020-08-23 04:53] VITALS: BP 133/74; PULSE 60; RESP 18; TEMP 36.2; O2SAT 97
[2020-08-23 04:56] LABS: BUN Creatinine Ratio 22.4 (6-22); Blood Urea Nitrogen 17 mg/dL (9-20); Calcium 9.3 mg/dL (8.4-10.2); Carbon Dioxide 28 mmol/L (22-32); Chloride 104 mmol/L (98-107); Estimated Glomerular Filt Rate > 60.0 mL/min (>60); Glucose 99 mg/dL (80-110); HEMOLYSIS < 15 (0-50); Potassium 3.9 mmol/L (3.4-5.1); Sodium 138 mmol/L (137-145)
[2020-08-23] MEDS: ALPRAZolam 0.25 MG TABLET PO (05:15)
[2020-08-23 05:17] LABS: Magnesium 2.2 mg/dL (1.6-2.3)
[2020-08-23 07:30] VITALS: BP 124/79; PULSE 64; RESP 18; TEMP 36.4; O2SAT 97
[2020-08-23] MEDS: ACETAMINOPHEN 325 MG TABLET 650 MG PO ×2 (07:35→13:05)
[2020-08-23 08:24] VITALS: BP 119/68; PULSE 69; RESP 14; TEMP 36.8; O2SAT 98
[2020-08-23] MEDS: GABAPENTIN 300 MG CAPSULE PO (08:33)
[2020-08-23] MEDS: DIVALPROEX DR 250 MG TABLET 500 MG PO (08:33)
--- NOTE | 2020-08-23 08:53 | P.PN_ITS ---
Subjective Subjective Date Patient Seen: 08/23/20 Time Patient Seen: 08:19 Interval history: Chief complaint: visual changes and headache Pt sitting up in bed eating breakfast today. Reports feeling much better today. His vision seems to be pretty much back to normal. He did have a headache upon awakening this morning similar to what he had yesterday but it has receded with tylenol and food, now he feels quite regular. Describes headache as mild/moderate, throbbing, not associated with photophobia. Describes visual changes as horizontal bright lines in central visual field, with peripheral brightness. No issues with balance or walking. Getting MRI/MRA today. continue Tylenol. Hold pramipexole. Exam Vital Signs (past 8 hours): - 08/23/20 04:53 08/23/20 07:30 08/23/20 08:24 Temperature 97.1 F L 97.5 F L 98.2 F Pulse Rate 60 64 69 Respiratory Rate 18 18 14 Blood Pressure 133/74 124/79 119/68 Pulse Oximetry 97 97 98 Oxygen Delivery Method Room Air Oxygen Flow Rate 0 Narrative Exam Narrative: alert elder in bed eating breakfast appears younger than stated age Const General: cooperative, healthy appearing, comfortable, well developed and well groomed [facility] Head: normal to inspection Ears: hearing grossly normal bilaterally Nose: external nose normal Mouth: oral mucosae normal Teeth and gingiva: dentition normal Eyes General: appearance normal, both eyes and all related structures Visual Hayes: normal visual hayes by confrontation Alignment and Position: alignment normal Resp Effort & Inspection: normal respiratory effort and able to speak in complete sentences Auscultation: clear to auscultation bilaterally Cardio Rate: regular rate Rhythm: regular rhythm Heart Sounds: S1 normal and S2 normal GI Inspection: normal to inspection Palpation: soft Percussion: normal to percussion Auscultation: normal bowel sounds Neuro General: patient alert, patient awake, patient oriented x3, gait normal, no focal motor deficits, CN's II-XI intact bilaterally and deep tendon reflexes 2+ bilaterally Cognition: normal cognition Speech: speech normal Motor: muscle tone normal throughout Sensory Exam: no sensory deficits noted Psych Appearance: grossly normal Mental Status: mental status grossly normal Speech and Movement: speech and movement normal Mood: congruent mood Affect: normal affect Attitude: cooperative Objective Labs Result Diagrams: 08/23/20 04:27 08/23/20 04:27 Labs: Laboratory Results - last 24 hr 08/22/20 08/22/20 08/22/20 18:12 18:12 18:12 WBC 6.5 RBC 4.76 Hgb 15.3 Hct 43.9 MCV 92.1 MCH 32.1 MCHC 34.8 RDW 12.4 Plt Count 204 Neut % (Auto) 55.1 Lymph % (Auto) 32.0 Rains % (Auto) 9.8 Eos % (Auto) 2.4 Baso % (Auto) 0.7 Neut # (Auto) 3600 Lymph # (Auto) 2100 [place] # (Auto) 600 Eos # (Auto) 200 Baso # (Auto) 0 ESR PT 11.5 INR 1.0 APTT 32 Sodium 137 Potassium 3.9 Chloride 103 Carbon Dioxide 27 BUN 21 H Creatinine 0.81 Estimated GFR > 60.0 BUN/Creatinine Ratio 25.9 H Glucose 118 H Calcium 10.0 Magnesium Total Bilirubin 0.4 AST 40 ALT 64 H Alkaline Phosphatase 38 Total Creatine Kinase 136 CK-MB (CK-2) 1.14 CK-MB (CK-2) Rel Index 0.8 L Troponin I < 0.012 C-Reactive Protein Total Protein 7.1 Albumin 4.4 Globulin 2.7 Albumin/Globulin Ratio 1.6 Lipase 132 Ethyl Alcohol < 10 SARS-CoV-2 (PCR) 08/22/20 08/22/20 08/22/20 18:12 18:12 19:50 WBC RBC Hgb Hct MCV MCH MCHC RDW Plt Count Neut % (Auto) Lymph % (Auto) Rains % (Auto) Eos % (Auto) Baso % (Auto) Neut # (Auto) Lymph # (Auto) [place] # (Auto) Eos # (Auto) Baso # (Auto) ESR 1 PT INR APTT Sodium Potassium Chloride Carbon Dioxide BUN Creatinine Estimated GFR BUN/Creatinine Ratio Glucose Calcium Magnesium Total Bilirubin AST ALT Alkaline Phosphatase Total Creatine Kinase CK-MB (CK-2) CK-MB (CK-2) Rel Index Troponin I C-Reactive Protein < 0.5 Total Protein Albumin Globulin Albumin/Globulin Ratio Lipase Ethyl Alcohol SARS-CoV-2 (PCR) Negative 08/23/20 08/23/20 08/23/20 04:27 04:27 04:27 WBC 4.3 L RBC 4.56 Hgb 14.7 Hct 41.9 MCV 91.9 MCH 32.2 MCHC 35.0 RDW 12.5 Plt Count 195 Neut % (Auto) 46.6 L Lymph % (Auto) 38.7 Rains % (Auto) 10.4 Eos % (Auto) 3.6 Baso % (Auto) 0.7 Neut # (Auto) 2000 Lymph # (Auto) 1700 [place] # (Auto) 400 Eos # (Auto) 200 Baso # (Auto) 0 ESR PT INR APTT Sodium 138 Potassium 3.9 Chloride 104 Carbon Dioxide 28 BUN 17 Creatinine 0.76 Estimated GFR > 60.0 BUN/Creatinine Ratio 22.4 H Glucose 99 Calcium 9.3 Magnesium 2.2 Total Bilirubin AST ALT Alkaline Phosphatase Total Creatine Kinase CK-MB (CK-2) CK-MB (CK-2) Rel Index Troponin I C-Reactive Protein Total Protein Albumin Globulin Albumin/Globulin Ratio Lipase Ethyl Alcohol SARS-CoV-2 (PCR) PFSH Medical History Acute coronary syndrome Anxiety Social History household members: spouse Smoking Status: Never smoker Assessment & Plan Assessment & Plan narrative: 60-year-old male with vision changes and headache, possible TIA versus new onset of migraine with aura #TIA/CVA vs new dx migraine with aura Admit obs for further workup. MRI/MRA pending. Symptomatic improvement with tylenol. Vision wnl today. Started mirapex recently, continue to hold for now. Brother has migraines. #Bipolar 1 well controlled for years. awaiting depakote level. #Coronary artery disease without current issues, present on admission Plan continue outpatient medications of verapamil, rosuvastatin and Zetia #Hyperlipidemia present on admission Plan continue outpatient medications #claustrophobia benzo ordered for scan Plan: Continue home gabapentin and Depakote. Pending depakote level and MRI/MRA. Obs til then. Code status is full code
--- NOTE | 2020-08-23 09:00 | CM.DANOTE ---
DCP: Case received, EMR reviewed and met with patient. Introduced self and role. Was able to obtain information from patient regarding his baseline activity level prior to hospitalization. DCP assessment completed with information currently available. Patient is a 60 year old male who admitted yesterday evening to the care of the hospitalist team. PCP: Dr. Nevarez. Payer: confirmed: [employer]. Patient came to the hospital via private vehicle secondary to having some visual disturbances. Patient was also recently diagnosed with early Parkinsons. Patient will be having an MRI today. Met with patient in his room. He was sitting up in bed, alert and oriented, pleasant. Dr. Nevarez had just been in seeing patient. He is independent at his baseline, he recently retired at [employer] in [place]. He resides here in [place] with his spouse, Mariana. P: DCP to continue to follow. Patient should be able to go home depending upon results of MRI today. Haley Sandoval RN/Analyst Sales
[2020-08-23] MEDS: diazePAM 5 MG TABLET PO (09:17)
[2020-08-23 12:00] VITALS: BP 128/76; PULSE 65; RESP 16; TEMP 36.4; O2SAT 95
[2020-08-23 15:53] VITALS: BP 127/74; PULSE 69; RESP 16; TEMP 36.4; O2SAT 96
--- NOTE | 2020-08-23 16:40 | PM.DS.1 ---
History of Present Illness History of Present Illness Chief complaint: vision issues, since 1714,blurry, lines Discharge Providers Provider Date of admission: 08/22/20 20:44 Discharge Date: 08/23/20 Primary care physician: Doctor Geri MD Consults: 08/22/20 19:52 Consult to Physician Urgent Comment: Consulting Provider: Rina Wilkerson Reason for consultation: admission Has provider been notified: Yes 08/22/20 19:53 Consult to Physician Stat Comment: Consulting Provider: Andrea Nevarez Reason for consultation: admission Has provider been notified: Yes Discharge provider: Andrea Nevarez MD Summary Hospital Course Discharge Diagnosis: migraine with aura Hospital Course: Mr. De Souza was admitted for workup of concerning neuro visual symptoms and headache possible d/t TIA/CVA. However workup was unrevealing and visual symptoms receded leaving only moderate headache. He generally did well and was eating drinking walking without any problems at dc with tylenol for headache. will dc with short triptan script to f/u with PCP in 2 days. Status at Discharge Cognitive/behavioral status at discharge: oriented Functional status at discharge: independent ambulation Overall status at discharge: patient is progressing back to baseline Time Spent with Patient Time spent: Less than 30 minutes Exam Vital Signs (past 8 hours): - 08/23/20 12:00 08/23/20 15:53 Temperature 97.5 F L 97.6 F Pulse Rate 65 69 Respiratory Rate 16 16 Blood Pressure 128/76 127/74 Pulse Oximetry 95 96 Oxygen Delivery Method Room Air Oxygen Flow Rate 0 Narrative Exam Narrative: sitting up in bed feeling fine Const General: cooperative, healthy appearing and comfortable Nutritional Appearance: average body habitus Orientation: alert, awake and oriented x3 Eyes General: appearance normal, both eyes and all related structures Visual Lorenzo: normal visual lorenzo by confrontation Alignment and Position: alignment normal Resp Effort & Inspection: normal respiratory effort and able to speak in complete sentences Auscultation: clear to auscultation bilaterally Cardio Rate: regular rate Rhythm: regular rhythm Heart Sounds: S1 normal and S2 normal GI Inspection: normal to inspection Palpation: soft Percussion: normal to percussion Auscultation: normal bowel sounds Neuro General: patient alert, patient oriented x3, normal light touch, pain and propioception, normal sensation to monofilament and deep tendon reflexes 2+ bilaterally Cranial Nerves: CN's II-XI intact bilaterally Cognition: normal cognition Speech: speech normal Motor: muscle tone normal throughout Sensory Exam: no sensory deficits noted Extrem General: normal to inspection and full ROM Psych Appearance: grossly normal and well kempt Speech and Movement: speech and movement normal Objective Labs Result Diagrams: 08/23/20 04:27 08/23/20 04:27 Labs: Laboratory Results - last 24 hr 08/22/20 08/22/20 08/22/20 18:12 18:12 18:12 WBC 6.5 RBC 4.76 Hgb 15.3 Hct 43.9 MCV 92.1 MCH 32.1 MCHC 34.8 RDW 12.4 Plt Count 204 Neut % (Auto) 55.1 Lymph % (Auto) 32.0 [place] % (Auto) 9.8 Eos % (Auto) 2.4 Baso % (Auto) 0.7 Neut # (Auto) 3600 Lymph # (Auto) 2100 [place] # (Auto) 600 Eos # (Auto) 200 Baso # (Auto) 0 ESR PT 11.5 INR 1.0 APTT 32 Sodium 137 Potassium 3.9 Chloride 103 Carbon Dioxide 27 BUN 21 H Creatinine 0.81 Estimated GFR > 60.0 BUN/Creatinine Ratio 25.9 H Glucose 118 H Calcium 10.0 Magnesium Total Bilirubin 0.4 AST 40 ALT 64 H Alkaline Phosphatase 38 Total Creatine Kinase 136 CK-MB (CK-2) 1.14 CK-MB (CK-2) Rel Index 0.8 L Troponin I < 0.012 C-Reactive Protein Total Protein 7.1 Albumin 4.4 Globulin 2.7 Albumin/Globulin Ratio 1.6 Lipase 132 Ethyl Alcohol < 10 SARS-CoV-2 (PCR) 08/22/20 08/22/20 08/22/20 18:12 18:12 19:50 WBC RBC Hgb Hct MCV MCH MCHC RDW Plt Count Neut % (Auto) Lymph % (Auto) [place] % (Auto) Eos % (Auto) Baso % (Auto) Neut # (Auto) Lymph # (Auto) [place] # (Auto) Eos # (Auto) Baso # (Auto) ESR 1 PT INR APTT Sodium Potassium Chloride Carbon Dioxide BUN Creatinine Estimated GFR BUN/Creatinine Ratio Glucose Calcium Magnesium Total Bilirubin AST ALT Alkaline Phosphatase Total Creatine Kinase CK-MB (CK-2) CK-MB (CK-2) Rel Index Troponin I C-Reactive Protein < 0.5 Total Protein Albumin Globulin Albumin/Globulin Ratio Lipase Ethyl Alcohol SARS-CoV-2 (PCR) Negative 08/23/20 08/23/20 08/23/20 04:27 04:27 04:27 WBC 4.3 L RBC 4.56 Hgb 14.7 Hct 41.9 MCV 91.9 MCH 32.2 MCHC 35.0 RDW 12.5 Plt Count 195 Neut % (Auto) 46.6 L Lymph % (Auto) 38.7 [place] % (Auto) 10.4 Eos % (Auto) 3.6 Baso % (Auto) 0.7 Neut # (Auto) 2000 Lymph # (Auto) 1700 [place] # (Auto) 400 Eos # (Auto) 200 Baso # (Auto) 0 ESR PT INR APTT Sodium 138 Potassium 3.9 Chloride 104 Carbon Dioxide 28 BUN 17 Creatinine 0.76 Estimated GFR > 60.0 BUN/Creatinine Ratio 22.4 H Glucose 99 Calcium 9.3 Magnesium 2.2 Total Bilirubin AST ALT Alkaline Phosphatase Total Creatine Kinase CK-MB (CK-2) CK-MB (CK-2) Rel Index Troponin I C-Reactive Protein Total Protein Albumin Globulin Albumin/Globulin Ratio Lipase Ethyl Alcohol SARS-CoV-2 (PCR) [facility] Medical History Acute coronary syndrome Anxiety Social History household members: spouse Smoking Status: Never smoker Discharge Assessment & Plan Assessment and Plan Plan of Treatment: 60-year-old male with vision changes and headache, possible TIA versus new onset of migraine with aura #TIA/CVA vs new dx migraine with aura Admit obs for further workup. MRI/MRA wnl today. Symptomatic improvement with tylenol. Vision wnl today. Started mirapex recently, continue to hold for now. Brother has migraines. Will discharge with triptan short course, to f/u in clinic in two days #Bipolar 1 well controlled for years. depakote level still pending, f/u as outpt #Coronary artery disease without current issues, present on admission continue outpatient medications of verapamil, rosuvastatin and Zetia #Hyperlipidemia present on admission continue outpatient medications #claustrophobia benzo ordered for scan dispo: dc home this evening to f/u with Dr. Nevarez in clinic Code status is full code Discharge Plan Discharge Plan Patient Disposition: Home Provider Discharge Comment: stable Discharge orders & Medications Prescriptions: New sumatriptan succinate 25 mg tablet 25 mg PO Q2-4H PRN (Reason: migraine headache) Qty: 7 RF: 0 Continued gabapentin [Neurontin] 300 MG capsule 300 mg PO BID Qty: 0 RF: 0 ezetimibe [Zetia] 10 MG tablet 10 mg PO QDAY Qty: 30 RF: 0 aspirin 81 MG tablet,delayed release (DR/EC) 81 mg PO QDAY Qty: 0 RF: 0 nitroglycerin [Nitrostat] 0.4 MG tablet, sublingual 0.4 mg Sublingual PRN PRN (Reason: Chest Pain) Qty: 0 RF: 0 alprazolam 0.25 MG tablet 1 tab PO Q8H Qty: 0 RF: 0 divalproex [Depakote] 500 MG tablet,delayed release (DR/EC) 500 mg PO BID Qty: 0 RF: 0 atorvastatin [Lipitor] 80 MG tablet 40 mg PO QDAY Qty: 0 RF: 0 verapamil 120 MG tablet extended release 1 tab PO QDAY Qty: 0 RF: 0 rosuvastatin 40 mg PO BEDTIME RF: 0 clonazepam 0.5 mg tablet 0.25 mg PO BEDTIME RF: 0 Follow up/Referrals: Doctor Black MD [Primary Care Provider] - Andrea Nevarez MD [Physician] - Diet/Activity/Treatments Diet: Diet as Tolerated Discharge Data Primary Care Provider: Doctor Sofia Attending Provider: Andrea Nevarez
--- NOTE | 2020-08-23 17:53 | PC.NURSE ---
Hermelindo is discharged home with his today. d/c instructions are provided and reviewed, and questions answered. IV is removed and pt tolerated well. Hermelindo is escorted to private car via w/c to ride home with .
== END 2020-08-23 18:00 | disposition home or self-care (01) ==
LOC: ED 19:52 → AC 20:47
PROVIDERS: Family Medicine; Admitting Provider Family Medicine; Emergency Provider Emergency Medicine; Referring Provider Emergency Medicine; Visit Provider Family Medicine
DX: G43.109 Migraine with aura, not intractable, without status migrainosus (principal); H53.8 Other visual disturbances; I25.10 Atherosclerotic heart disease of native coronary artery without angina pectoris; E78.5 Hyperlipidemia, unspecified; K21.9 Gastro-esophageal reflux disease without esophagitis; F31.9 Bipolar disorder, unspecified; F40.240 Claustrophobia; Z95.818 Presence of other cardiac implants and grafts; Z20.822 Contact with and (suspected) exposure to COVID-19
CPT/HCPCS: 36415; 36592; 70450; 70548; 70553; 80048; 80053; 80320; 82550; 82553; 83690; 83735; 84484; 85025; 85610; 85651; 85730; 86140; 87635; 93005; 93010; 99284; C9803; G0378

== ENCOUNTER → 2020-10-29 06:53 | Outpatient (CLI) | payer OTHER, SELFPAY ==
[2020-08-22 21:09] VITALS: BMI 27.8
[2020-10-29 08:51] LABS: Cholesterol 123 mg/dL (140-199); HDL Cholesterol 47 mg/dL (40-60); LDL Cholesterol Calculated 58 mg/dL (<100); Triglycerides 90 mg/dL (35-150)
== END ==
PROVIDERS: Referring Provider Hospitalist; Visit Provider Hospitalist
DX: I25.10 Atherosclerotic heart disease of native coronary artery without angina pectoris (principal); E78.5 Hyperlipidemia, unspecified
CPT/HCPCS: 36415; 80061

== ENCOUNTER → 2021-06-30 07:24 | Outpatient (CLI) | payer OTHER, SELFPAY ==
[2020-08-22 21:09] VITALS: BMI 27.8
[2021-06-30 07:52] LABS: Add Manual Diff / Slide Review NO; Basophils Absolute Auto 0 /uL (0-100); Basophils Percent Auto 0.8 % (0-2); Eosinophils Absolute Auto 100 /uL (0-450); Eosinophils Percent Auto 2.7 % (2-4); Hematocrit 44.6 % (41-53); Hemoglobin 15.4 g/dL (13.5-17.5); Lymphocytes Absolute Auto 1200 /uL (1100-4500); Lymphocytes Percent Auto 28.2 % (25-40); Mean Corpuscular HGB Conc 34.6 % (30-36); Mean Corpuscular Hemoglobin 31.6 PG (26-34); Mean Corpuscular Volume 91.4 fL (80-100); Monocytes Absolute Auto 500 /uL (0-900); Monocytes Percent Auto 11.5 % (3-14); Neutrophils Absolute Auto 2400 /uL (1500-7000); Neutrophils Percent Auto 56.8 % (50-75); Platelet Count 211 X10^3/uL (150-400); Red Blood Cell Count 4.88 X10^6/uL (4.5-5.9); Red Cell Distribution Width 12.7 % (11.6-14.8); White Blood Cell Count 4.3 X10^3/uL (4.5-11.0)
[2021-06-30 08:02] LABS: Alanine Aminotransferase 69 IU/L (<50); Albumin 4.5 g/dL (3.5-5.0); Albumin Globulin Ratio 1.7 (1.0-2.8); Alkaline Phosphatase 35 U/L (38-126); Aspartate Aminotransferase 52 IU/L (17-59); BUN Creatinine Ratio 16.7 (6-22); Bilirubin Total 0.6 mg/dL (0.2-1.3); Blood Urea Nitrogen 15 mg/dL (9-20); Calcium 9.6 mg/dL (8.4-10.2); Carbon Dioxide 29 mmol/L (22-32); Chloride 105 mmol/L (98-107); Estimated Glomerular Filt Rate > 60.0 mL/min (>60); Globulin 2.6 g/dL (1.7-4.1); Glucose 98 mg/dL (80-110); HEMOLYSIS < 15 (0-50); Potassium 3.8 mmol/L (3.4-5.1); Sodium 140 mmol/L (137-145); Total Protein 7.1 g/dL (6.3-8.2)
[2021-06-30 08:34] LABS: Thyroid Stimulating Hormone 3.45 uIU/mL (0.47-4.68)
[2021-07-01 03:00] LABS: Valproic Acid (Depakene) Total 10 ug/mL (50-100)
== END ==
PROVIDERS: PCP Family Medicine; Referring Provider Psychiatry & Neurology Psychiatry; Visit Provider Psychiatry & Neurology Psychiatry
DX: Z79.899 Other long term (current) drug therapy (principal)
CPT/HCPCS: 36415; 80053; 80164; 84443; 85025

== ENCOUNTER → 2021-09-02 07:26 | Outpatient (CLI) | payer OTHER, SELFPAY ==
[2020-08-22 21:09] VITALS: BMI 27.8
[2021-09-02 09:10] LABS: Thyroid Stimulating Hormone 3.17 uIU/mL (0.47-4.68)
[2021-09-03 06:31] LABS: Valproic Acid (Depakene) Total 36 ug/mL (50-100)
== END ==
PROVIDERS: PCP Family Medicine; Referring Provider Psychiatry & Neurology Psychiatry; Visit Provider Psychiatry & Neurology Psychiatry
DX: Z79.899 Other long term (current) drug therapy (principal)
CPT/HCPCS: 36415; 80164; 84443

== ENCOUNTER → 2021-12-09 07:25 | Outpatient (CLI) | payer OTHER, SELFPAY ==
[2020-08-22 21:09] VITALS: BMI 27.8
[2021-12-09 09:16] LABS: Add Manual Diff / Slide Review NO; Basophils Absolute Auto 0 /uL (0-100); Basophils Percent Auto 0.9 % (0-2); Eosinophils Absolute Auto 100 /uL (0-450); Eosinophils Percent Auto 3.8 % (2-4); Hematocrit 42.7 % (41-53); Hemoglobin 15.1 g/dL (13.5-17.5); Lymphocytes Absolute Auto 1100 /uL (1100-4500); Lymphocytes Percent Auto 28.9 % (25-40); Mean Corpuscular HGB Conc 35.3 % (30-36); Mean Corpuscular Hemoglobin 31.8 PG (26-34); Mean Corpuscular Volume 90.2 fL (80-100); Monocytes Absolute Auto 400 /uL (0-900); Neutrophils Absolute Auto 2100 /uL (1500-7000); Neutrophils Percent Auto 55.4 % (50-75); Platelet Count 207 X10^3/uL (150-400); Red Blood Cell Count 4.73 X10^6/uL (4.5-5.9); Red Cell Distribution Width 12.9 % (11.6-14.8); White Blood Cell Count 3.9 X10^3/uL (4.5-11.0)
[2021-12-09 09:44] LABS: BUN Creatinine Ratio 21.6 (6-22); Blood Urea Nitrogen 16 mg/dL (9-20); Calcium 9.1 mg/dL (8.4-10.2); Carbon Dioxide 28 mmol/L (22-32); Chloride 108 mmol/L (98-107); Cholesterol 123 mg/dL (140-199); Estimated Glomerular Filt Rate > 60 mL/min (>60); Glucose 104 mg/dL (80-110); HDL Cholesterol 45 mg/dL (40-60); HEMOLYSIS < 15 (0-50); LDL Cholesterol Calculated 61 mg/dL (<100); Potassium 4.3 mmol/L (3.4-5.1); Sodium 139 mmol/L (137-145); Triglycerides 87 mg/dL (35-150)
[2021-12-09 10:11] LABS: Thyroid Stimulating Hormone 1.61 uIU/mL (0.47-4.68)
[2021-12-09 23:20] LABS: Valproic Acid (Depakene) Total 40 ug/mL (50-100)
== END ==
PROVIDERS: Internal Medicine Cardiovascular Disease; PCP Family Medicine; Referring Provider Psychiatry & Neurology Psychiatry; Visit Provider Psychiatry & Neurology Psychiatry
DX: Z79.899 Other long term (current) drug therapy (principal); I25.10 Atherosclerotic heart disease of native coronary artery without angina pectoris
CPT/HCPCS: 36415; 80048; 80061; 80164; 84443; 85025

== ENCOUNTER → 2021-12-14 14:50 | Outpatient (CLI) | payer OTHER, SELFPAY ==
[2020-08-22 21:09] VITALS: BMI 27.8
--- NOTE | 2021-12-14 14:52 | DI.RAD.S_ITS ---
PROCEDURE: XR KNEE LT 3V INDICATIONS: Left knee pain TECHNIQUE: 3 views of the knee were acquired. COMPARISON: None. FINDINGS: Bones: No fractures or dislocations. Mild tricompartmental osteoarthritis is seen with joint space narrowing and subchondral sclerosis. No suspicious bony lesions. Soft tissues: Small to moderate suprapatellar joint effusion is seen. No suspicious soft tissue calcifications. IMPRESSION: Mild tricompartmental osteoarthritis. No fracture or dislocation. Small to moderate joint effusion. Dictated by: Jeremiah Bragg M.D. on 12/14/2021 at 17:18 Approved by: Jeremiah Bragg M.D. on 12/14/2021 at 17:18
== END ==
PROVIDERS: PCP Family Medicine; Referring Provider Family Medicine; Visit Provider Family Medicine
DX: M25.562 Pain in left knee (principal); M17.12 Unilateral primary osteoarthritis, left knee; M25.462 Effusion, left knee
CPT/HCPCS: 73562

== ENCOUNTER 2022-02-11 14:02 | Emergency (ER) | payer OTHER, SELFPAY ==
[2020-08-22 21:09] VITALS: BMI 27.8
[2022-02-11] VITALS (14 sets, daily range): BP systolic 114–143; BP diastolic 70–84; PULSE 56–75; RESP 12–26; TEMP 36.4; O2SAT 97–99; BMI 29.2
--- NOTE | 2022-02-11 14:04 | DI.RAD.S_ITS ---
PROCEDURE: XR CHEST 1V INDICATIONS: chest pain TECHNIQUE: One view of the chest was acquired. COMPARISON: [facility], , CHEST 1 VIEW, 12/18/2016, 21:56. FINDINGS: Surgical changes and devices: None. Lungs and pleura: Lungs are clear. No pleural effusions or pneumothorax. Mediastinum: Mediastinal contours appear normal. Heart size is normal. Bones and chest wall: No suspicious bony lesions. Overlying soft tissues appear unremarkable. IMPRESSION: No acute cardiopulmonary findings Approved by: Kam Isidro M.D. on 02/11/2022 at 13:53
--- NOTE | 2022-02-11 14:07 | ED.WEAKNESS ---
HPI - Weakness General Chief complaint: Dizziness Stated complaint: dizziness, lightheaded Time Seen by Provider: 02/11/22 14:03 History of Present Illness HPI Narrative: Patient is a 61-year-old male has history of coronary artery disease, TIA who had a recent outpatient left knee scope 2 weeks ago presenting today with generalized weakness shortness of breath and not feeling right. He states since his surgery he has had trouble with hemorrhoids he has had some minor bleeding. He was taking a nap today pain from his hemorrhoid woke him up he sat up and just did not feel well. That he might pass out. He denies chest pain or palpitations. Just diffuse weakness no localization or focal deficits. He denies any abdominal pain nausea vomiting fever or chills. Related Data Home Medications Medication Instructions Recorded Confirmed aspirin 81 mg tablet,delayed 81 mg PO QDAY ##0 12/28/15 06/01/21 release ezetimibe 10 mg tablet (Zetia) 10 mg PO QDAY #30 tabs 12/28/15 06/01/21 gabapentin 300 mg capsule 300 mg PO BID ##0 12/28/15 06/01/21 (Neurontin) nitroglycerin 0.4 mg sublingual 0.4 mg sublingual PRN PRN Chest 12/18/16 06/01/21 tablet (Nitrostat) Pain ##0 divalproex 500 mg tablet,delayed 500 mg PO BID ##0 12/19/16 06/01/21 release (Depakote) verapamil 120 mg tablet,extended 1 tab PO QDAY ##0 12/19/16 06/01/21 release clonazepam 0.125 mg disintegrating 0.125 mg PO BEDTIME 06/01/21 06/01/21 tablet pramipexole 0.25 mg tablet 0.25 mg PO DAILY 06/01/21 06/01/21 rosuvastatin 40 mg tablet 40 mg PO ONCE 06/01/21 06/01/21 Previous Rx's Medication Instructions Recorded hydrocortisone acetate 25 mg 25 mg LA BEDTIME PRN hemorrhoids 02/11/22 rectal suppository (Anusol-HC) #24 ea Allergies Allergy/AdvReac Type Severity Reaction Status Date / Time No Known Drug Allergies Allergy Verified 02/11/22 14:09 Review of Systems Review of Systems Narrative: GENERAL: Denies chills, fatigue, malaise, fever, sweats, travel HEENT: Denies sinus pain, ear pain, sore throat, difficulty swallowing, neck pain RESPIRATORY: Denies dyspnea, cough, wheezing, hemoptysis, sputum. CARDIOVASCULAR: Denies chest pain, palpitations, orthopnea, edema GASTROINTESTINAL: See HPI : Denies dysuria, frequency, incontinence, hematuria, urinary retention, flank pain. MUSCULOSKELETAL: Denies weakness, joint pain, or bony pain SKIN: No rash, no erythema, no pruritus NEUROLOGIC: See HPI PSYCHIATRIC: No concerning psychosocial issues. 12 point review of systems is negative except for those stated above and HPI Patient History Medical History Acute coronary syndrome Anxiety Family History Brother Heart disease Social History household members: spouse Smoking Status: Never smoker Smoking Status: Never smoker alcohol intake frequency: a few times a month Alcohol type: wine Substance Use Type: does not use Exam Initial Vital Signs Initial Vital Signs: Vital Signs Temperature 97.6 F 02/11/22 14:00 Pulse Rate 60 02/11/22 14:00 Respiratory Rate 18 02/11/22 14:00 Blood Pressure 140/83 02/11/22 14:00 Pulse Oximetry 99 02/11/22 14:00 Oxygen Delivery Method 02/11/22 14:00 GENERAL: Alert 61-year-old male appears to not feel well HEENT: Head atraumatic,EOMI, pupils reactive, face symmetric, [moist] mucous membranes CARDIOVASCULAR: Regular rate and rhythm without murmurs, rubs or gallops. RESPIRATORY: Breath sounds equal bilaterally, no wheezes rales or rhonchi. ABDOMEN: Soft, nontender. Normoactive bowel sounds all 4 quadrants. No guarding or rebound. EXTREMITIES: Normal range of motion, no clubbing or edema. Neurovascularly intact NEUROLOGICAL: Alert and oriented x4.Normal gait and speech. Cranial nerves II through XII grossly intact. [Good [id number], good [id number], strength equal bilaterally, no dysarthria or aphasia, sensation in tact to soft touch bilaterally, no visual changes, no facial droop] SKIN: Warm, dry, no laceration, no petechiae, no rashes or lesions. Scores NIH Stroke Scale Level of Conciousness: Alert, keenly responsive Ask month/age: Answers both questions correctly. Open/close eyes, close hand: Performs both tasks correctly Best gaze horizontal: Normal Visual hayes: No visual loss Facial palsy: Normal symetrical movement Left arm drift: No drift for full 10 sec Right arm drift: No drift for full 10 sec Left leg drift: No drift for full 5 sec Right leg drift: No drift for full 5 sec Limb ataxia: Absent Sensory on face/arms/legs: Normal, no sensory loss Best language: No aphasia, normal Dysarthria: Normal Extinction or inattention: No abnormality Total NIH Stroke scale score: 0 Course Orders Ordered: ED Orders 02/11/22 14:04 XR chest 1V Stat 02/11/22 14:08 EKG-12 Lead Stat 02/11/22 14:09 Complete Blood Count AUTO DIFF Stat Comprehensive Metabolic Panel Stat D Dimer Stat Lactate (Lactic Acid) Stat Lipase Stat NT-proBNP (BNP-Adult 18+) Stat Procalcitonin Stat Troponin & CK Cardiac Panel Stat 02/11/22 14:30 Covid-19 + FLU A/B + RSV - PCR Stat 02/11/22 16:27 Trop I [Troponin I] Stat Discontinued Medications Sodium Chloride (Normal Saline 0.9%) 1,000 mls @ 1,000 mls/hr IV CONT FARRAH Last Infusion: 02/11/22 15:33 Dose: 0 mls/hr Documented By: Admin: 02/11/22 14:25 Dose: 1,000 mls/hr Documented By: NATHALIA Sodium Chloride (Normal Saline 0.9%) 1,000 mls @ 1,000 mls/hr IV BOLUS ONE Stop: 02/11/22 16:32 Last Infusion: 02/11/22 17:10 Dose: 0 mls/hr Documented By: Admin: 02/11/22 15:34 Dose: 1,000 mls/hr Documented By: CHYNA Lidocaine (Lidocaine 5% Oint 35 Gm) 1 applic TOP NOW ONE Stop: 02/11/22 16:16 Last Admin: 02/11/22 16:32 Dose: 1 applic Documented By: NATHALIA Ondansetron HCl (Ondansetron 4 Mg/2 Ml Inj) 4 mg IV NOW ONE Stop: 02/11/22 14:05 Last Admin: 02/11/22 14:25 Dose: 4 mg Documented By: NATHALIA Vital Signs Vital signs: Vital Signs - 8 hr 02/11/22 14:00 02/11/22 14:11 02/11/22 14:30 Temperature 97.6 F Pulse Rate 60 56 L Pulse Rate [Orthostatic Standing] Respiratory Rate 18 14 Blood Pressure 140/83 126/78 Blood Pressure [Orthostatic Standing] Pulse Oximetry 99 98 Oxygen Delivery Method Room Air Room Air 02/11/22 14:30 02/11/22 14:45 02/11/22 14:45 Temperature Pulse Rate 61 64 Pulse Rate [Orthostatic Standing] Respiratory Rate 16 12 Blood Pressure 120/73 Blood Pressure [Orthostatic Standing] Pulse Oximetry 98 97 Oxygen Delivery Method Room Air Room Air 02/11/22 15:00 02/11/22 15:00 02/11/22 15:15 Temperature Pulse Rate 62 65 Pulse Rate [Orthostatic Standing] Respiratory Rate 12 14 Blood Pressure 125/76 Blood Pressure [Orthostatic Standing] Pulse Oximetry 97 97 Oxygen Delivery Method Room Air Room Air 02/11/22 15:15 02/11/22 17:05 02/11/22 15:30 Temperature Pulse Rate Pulse Rate [Orthostatic Standing] 75 Respiratory Rate Blood Pressure 114/70 122/77 Blood Pressure [Orthostatic Standing] 139/73 Pulse Oximetry Oxygen Delivery Method 02/11/22 15:30 02/11/22 15:45 02/11/22 15:45 Temperature Pulse Rate 64 63 Pulse Rate [Orthostatic Standing] Respiratory Rate 15 19 Blood Pressure 125/81 Blood Pressure [Orthostatic Standing] Pulse Oximetry 97 98 Oxygen Delivery Method Room Air Room Air 02/11/22 16:00 02/11/22 16:00 02/11/22 16:15 Temperature Pulse Rate 67 65 Pulse Rate [Orthostatic Standing] Respiratory Rate 22 19 Blood Pressure 143/82 H Blood Pressure [Orthostatic Standing] Pulse Oximetry 99 97 Oxygen Delivery Method Room Air Room Air 02/11/22 16:15 02/11/22 16:30 02/11/22 16:30 Temperature Pulse Rate 65 Pulse Rate [Orthostatic Standing] Respiratory Rate 18 Blood Pressure 137/84 125/76 Blood Pressure [Orthostatic Standing] Pulse Oximetry 99 Oxygen Delivery Method Room Air 02/11/22 16:45 02/11/22 16:45 02/11/22 17:00 Temperature Pulse Rate 63 Pulse Rate [Orthostatic Standing] Respiratory Rate 24 Blood Pressure 130/84 140/79 Blood Pressure [Orthostatic Standing] Pulse Oximetry 98 Oxygen Delivery Method Room Air 02/11/22 17:00 Temperature Pulse Rate 66 Pulse Rate [Orthostatic Standing] Respiratory Rate 26 H Blood Pressure Blood Pressure [Orthostatic Standing] Pulse Oximetry 98 Oxygen Delivery Method Room Air MDM - Weakness Lab Data Result diagrams: 02/11/22 14:09 02/11/22 14:09 Labs: Lab Results 02/11/22 02/11/22 02/11/22 Range/Units 14:09 14:09 14:09 WBC 4.8 (4.5-11.0) X10^3/uL RBC 4.65 (4.5-5.9) X10^6/uL Hgb 14.9 (13.5-17.5) g/dL Hct 41.9 (41-53) % MCV 90.2 (80-100) fL MCH 32.0 (26-34) PG MCHC 35.4 (30-36) % RDW 12.3 (11.6-14.8) % Plt Count 221 (150-400) X10^3/uL Neut % (Auto) 45.6 L (50-75) % Lymph % (Auto) 39.6 (25-40) % [place] % (Auto) 10.3 (3-14) % Eos % (Auto) 3.7 (2-4) % Baso % (Auto) 0.8 (0-2) % Neut # (Auto) 2200 (0058-9637) /uL Lymph # (Auto) 1900 (2043-1618) /uL [place] # (Auto) 500 (0-900) /uL Eos # (Auto) 200 (0-450) /uL Baso # (Auto) 0 (0-100) /uL D-Dimer 475 (<500) ng/ml Sodium 138 (137-145) mmol/L Potassium 3.9 (3.4-5.1) mmol/L Chloride 100 (98-107) mmol/L Carbon Dioxide 28 (22-32) mmol/L BUN 19 (9-20) mg/dL Creatinine 0.91 (0.66-1.25) mg/dL Estimated GFR > 60 (>60) mL/min BUN/Creatinine Ratio 20.9 (6-22) Glucose 122 H (80-110) mg/dL Lactate (0.7-2.1) mmol/L Calcium 9.1 (8.4-10.2) mg/dL Total Bilirubin 0.5 (0.2-1.3) mg/dL AST 36 (17-59) IU/L ALT 83 H (<50) IU/L Alkaline Phosphatase 43 (38-126) U/L Total Creatine Kinase 72 (55-170) U/L CK-MB (CK-2) TNP CK-MB (CK-2) Rel Index TNP Troponin I < 0.012 (0.01-0.034) ng/mL NT-Pro-B Natriuret Pep (<125) pg/mL Total Protein 6.9 (6.3-8.2) g/dL Albumin 4.2 (3.5-5.0) g/dL Globulin 2.7 (1.7-4.1) g/dL Albumin/Globulin Ratio 1.6 (1.0-2.8) Lipase 114 (23-300) U/L Procalcitonin < 0.03 (<0.5) ng/mL SARS-CoV-2 (PCR) (Negative) Influenza A (RT-PCR) (NEGATIVE) Influenza B (RT-PCR) (NEGATIVE) RSV (PCR) (Negative) 02/11/22 02/11/22 02/11/22 Range/Units 14:09 14:09 14:30 WBC (4.5-11.0) X10^3/uL RBC (4.5-5.9) X10^6/uL Hgb (13.5-17.5) g/dL Hct (41-53) % MCV (80-100) fL MCH (26-34) PG MCHC (30-36) % RDW (11.6-14.8) % Plt Count (150-400) X10^3/uL Neut % (Auto) (50-75) % Lymph % (Auto) (25-40) % [place] % (Auto) (3-14) % Eos % (Auto) (2-4) % Baso % (Auto) (0-2) % Neut # (Auto) (1285-4838) /uL Lymph # (Auto) (1777-0423) /uL [place] # (Auto) (0-900) /uL Eos # (Auto) (0-450) /uL Baso # (Auto) (0-100) /uL D-Dimer (<500) ng/ml Sodium (137-145) mmol/L Potassium (3.4-5.1) mmol/L Chloride (98-107) mmol/L Carbon Dioxide (22-32) mmol/L BUN (9-20) mg/dL Creatinine (0.66-1.25) mg/dL Estimated GFR (>60) mL/min BUN/Creatinine Ratio (6-22) Glucose (80-110) mg/dL Lactate 2.1 (0.7-2.1) mmol/L Calcium (8.4-10.2) mg/dL Total Bilirubin (0.2-1.3) mg/dL AST (17-59) IU/L ALT (<50) IU/L Alkaline Phosphatase (38-126) U/L Total Creatine Kinase (55-170) U/L CK-MB (CK-2) CK-MB (CK-2) Rel Index Troponin I (0.01-0.034) ng/mL NT-Pro-B Natriuret Pep 17 (<125) pg/mL Total Protein (6.3-8.2) g/dL Albumin (3.5-5.0) g/dL Globulin (1.7-4.1) g/dL Albumin/Globulin Ratio (1.0-2.8) Lipase (23-300) U/L Procalcitonin (<0.5) ng/mL SARS-CoV-2 (PCR) Negative (Negative) Influenza A (RT-PCR) Flu a negative (NEGATIVE) Influenza B (RT-PCR) Flu b negative (NEGATIVE) RSV (PCR) Negative (Negative) 02/11/22 Range/Units 16:27 WBC (4.5-11.0) X10^3/uL RBC (4.5-5.9) X10^6/uL Hgb (13.5-17.5) g/dL Hct (41-53) % MCV (80-100) fL MCH (26-34) PG MCHC (30-36) % RDW (11.6-14.8) % Plt Count (150-400) X10^3/uL Neut % (Auto) (50-75) % Lymph % (Auto) (25-40) % [place] % (Auto) (3-14) % Eos % (Auto) (2-4) % Baso % (Auto) (0-2) % Neut # (Auto) (1556-5356) /uL Lymph # (Auto) (5380-8471) /uL [place] # (Auto) (0-900) /uL Eos # (Auto) (0-450) /uL Baso # (Auto) (0-100) /uL D-Dimer (<500) ng/ml Sodium (137-145) mmol/L Potassium (3.4-5.1) mmol/L Chloride (98-107) mmol/L Carbon Dioxide (22-32) mmol/L BUN (9-20) mg/dL Creatinine (0.66-1.25) mg/dL Estimated GFR (>60) mL/min BUN/Creatinine Ratio (6-22) Glucose (80-110) mg/dL Lactate (0.7-2.1) mmol/L Calcium (8.4-10.2) mg/dL Total Bilirubin (0.2-1.3) mg/dL AST (17-59) IU/L ALT (<50) IU/L Alkaline Phosphatase (38-126) U/L Total Creatine Kinase (55-170) U/L CK-MB (CK-2) CK-MB (CK-2) Rel Index Troponin I < 0.012 (0.01-0.034) ng/mL NT-Pro-B Natriuret Pep (<125) pg/mL Total Protein (6.3-8.2) g/dL Albumin (3.5-5.0) g/dL Globulin (1.7-4.1) g/dL Albumin/Globulin Ratio (1.0-2.8) Lipase (23-300) U/L Procalcitonin (<0.5) ng/mL SARS-CoV-2 (PCR) (Negative) Influenza A (RT-PCR) (NEGATIVE) Influenza B (RT-PCR) (NEGATIVE) RSV (PCR) (Negative) Urine Dip Bedside Urine Glucose Negative Bedside Urine Bilirubin - Negative Bedside Urine Ketone - Negative Urine Specific [place] 1.015 Bedside Urine Occult Blood - Negative Bedside Urine pH 6.5 Bedside Urine Protein - Negative Bedside Urine Urobilinogen - Negative Bedside Urine Nitrite - Negative Bedside Urine Leukocytes - Negative Esterase Imaging Data Chest x-ray: Radiologist Impression: XRay Report Signed Patient: Hermelindo De Souza MR#: [id number] : 1960 Acct:[id number] Age/Sex: 61 / M Date of Service: 02/11/22 Loc: ED Accession Number: [id number] ?? Procedure: XR chest 1V Ordering Provider: Zohreh Boo D.O. PROCEDURE:? XR CHEST 1V ? INDICATIONS:? chest pain ? TECHNIQUE:? One view of the chest was acquired.? ? COMPARISON:? [facility], CHEST 1 VIEW, 12/18/2016, 21:56. ? FINDINGS:? ? Surgical changes and devices:? None.? ? Lungs and pleura:? Lungs are clear.? No pleural effusions or pneumothorax.? ? Mediastinum:? Mediastinal contours appear normal.? Heart size is normal.? ? Bones and chest wall:? No suspicious bony lesions.? Overlying soft tissues appear unremarkable.? ? IMPRESSION:? No acute cardiopulmonary findings ? ? ? Approved by: Kam Isidro M.D. on 02/11/2022 at 13:53? ECG Data Interpretation: Normal sinus rhythm rate 57 LA interval 190 QRS [address] changes similar to previous EKG MDM Narrative Medical decision making narrative: Has week like symptoms and hemorrhoidal pain. He has not had significant bleeding he has had chronic ongoing hemorrhoids for a number of years. He recently had an outpatient and knee scope which was not and replacement he has very minimal swelling. His D-dimer is less than 500 this is unlikely to be a pulmonary embolism. His does have a history of coronary artery disease based never had chest pain he has 2- troponins. Really complaining of hemorrhoid pain. He has an appointment in a few days with surgeon. He has no sign of infection. The states that he got really diaphoretic some chest discomfort, patient only remembers waking up with hemorrhoidal pain. This may be secondary to have pain. He ambulated in the ED without any difficulty and no hypoxia. He has no focal deficits and NIH is 0. Discharge Plan Departure Patient Disposition: Home Clinical Impression: Near syncope, Hemorrhoids Instructions: Fainting, DI for Hemorrhoids Activity Restrictions/Additional Instructions: *You have been diagnosed with near syncope and hemorrhoids *What to do: At this time blood work is overall reassuring. Unclear what exactly was causing her symptoms today. As you do have a hemorrhoid please follow-up with surgery as scheduled. Avoid constipation *Continue to take medications as directed Anusol suppositories at bedtime if needed sent to [facility] *Follow up with your primary care provider in 2-3 days or call [phone] *Return to ER if you should have increasing pain, chest pain, passing out shortness of breath or any new, worsening or concerning symptoms Prescriptions: New hydrocortisone acetate [Anusol-HC] 25 mg suppository 25 mg LA BEDTIME PRN (Reason: hemorrhoids) Qty: 24 0RF No Action gabapentin [Neurontin] 300 MG capsule 300 mg PO BID Qty: 0 ezetimibe [Zetia] 10 MG tablet 10 mg PO QDAY Qty: 30 aspirin 81 MG tablet,delayed release (DR/EC) 81 mg PO QDAY Qty: 0 nitroglycerin [Nitrostat] 0.4 MG tablet, sublingual 0.4 mg Sublingual PRN PRN (Reason: Chest Pain) Qty: 0 divalproex [Depakote] 500 MG tablet,delayed release (DR/EC) 500 mg PO BID Qty: 0 verapamil 120 MG tablet extended release 1 tab PO QDAY Qty: 0 clonazepam 0.125 mg tablet,disintegrating 0.125 mg PO BEDTIME rosuvastatin 40 mg tablet 40 mg PO ONCE Label Comments: BEDTIME pramipexole 0.25 mg tablet 0.25 mg PO DAILY Label Comments: QAM Referrals: Andrea Nevarez MD [Primary Care Provider] - Visit Report Forms: Patient Portal/API
[2022-02-11 14:17] LABS: Add Manual Diff / Slide Review NO; Basophils Absolute Auto 0 /uL (0-100); Basophils Percent Auto 0.8 % (0-2); Eosinophils Absolute Auto 200 /uL (0-450); Eosinophils Percent Auto 3.7 % (2-4); Hematocrit 41.9 % (41-53); Hemoglobin 14.9 g/dL (13.5-17.5); Lymphocytes Absolute Auto 1900 /uL (1100-4500); Lymphocytes Percent Auto 39.6 % (25-40); Mean Corpuscular HGB Conc 35.4 % (30-36); Mean Corpuscular Volume 90.2 fL (80-100); Monocytes Absolute Auto 500 /uL (0-900); Monocytes Percent Auto 10.3 % (3-14); Neutrophils Absolute Auto 2200 /uL (1500-7000); Neutrophils Percent Auto 45.6 % (50-75); Platelet Count 221 X10^3/uL (150-400); Red Blood Cell Count 4.65 X10^6/uL (4.5-5.9); Red Cell Distribution Width 12.3 % (11.6-14.8); White Blood Cell Count 4.8 X10^3/uL (4.5-11.0)
[2022-02-11] MEDS: ONDANSETRON 4 MG/2 ML INJ IV (14:25)
[2022-02-11] MEDS: SODIUM CHLORIDE 0.9% 1,000 ML 1000 ML IV ×2 (14:25→15:34)
[2022-02-11 14:26] LABS: D Dimer 475 ng/ml (<500)
[2022-02-11 14:28] LABS: Alanine Aminotransferase 83 IU/L (<50); Albumin 4.2 g/dL (3.5-5.0); Albumin Globulin Ratio 1.6 (1.0-2.8); Alkaline Phosphatase 43 U/L (38-126); Aspartate Aminotransferase 36 IU/L (17-59); BUN Creatinine Ratio 20.9 (6-22); Bilirubin Total 0.5 mg/dL (0.2-1.3); Blood Urea Nitrogen 19 mg/dL (9-20); Calcium 9.1 mg/dL (8.4-10.2); Carbon Dioxide 28 mmol/L (22-32); Chloride 100 mmol/L (98-107); Creatine Kinase 72 U/L (55-170); Estimated Glomerular Filt Rate > 60 mL/min (>60); Globulin 2.7 g/dL (1.7-4.1); Glucose 122 mg/dL (80-110); HEMOLYSIS < 15 (0-50); Lipase 114 U/L (23-300); Potassium 3.9 mmol/L (3.4-5.1); Sodium 138 mmol/L (137-145); Total Protein 6.9 g/dL (6.3-8.2)
[2022-02-11 14:37] LABS: NT-proBNP (BNP-Adult 18+) 17 pg/mL (<125)
[2022-02-11 14:40] LABS: Troponin I < 0.012 ng/mL (0.01-0.034)
[2022-02-11 14:45] LABS: Procalcitonin < 0.03 ng/mL (<0.5)
[2022-02-11 14:53] LABS: Lactate (Lactic Acid) 2.1 mmol/L (0.7-2.1)
[2022-02-11 15:28] LABS: Influenza A - CEPHEID Flu A NEGATIVE (NEGATIVE); Influenza B - CEPHEID Flu B NEGATIVE (NEGATIVE); Respiratory Syncytial Virus Negative (Negative)
[2022-02-11 15:29] LABS: COVID-19 CEPHEID 4-PLEX PCR Negative (Negative)
[2022-02-11] MEDS: LIDOCAINE 5% OINT 35 GM 1 APPLIC TOP (16:32)
--- NOTE | 2022-02-11 17:10 | PC.NURSE ---
Pt o2 sats at 96% when ambulating around the unit. Dr. Boo aware. Pt denies SOB or dizziness.
[2022-02-11 17:12] LABS: Troponin I < 0.012 ng/mL (0.01-0.034)
== END 2022-02-11 17:33 | disposition home or self-care (01) ==
PROVIDERS: Emergency Provider Emergency Medicine; PCP Family Medicine
DX: R55 Syncope and collapse (principal); K64.9 Unspecified hemorrhoids; R07.9 Chest pain, unspecified; Z20.822 Contact with and (suspected) exposure to COVID-19
CPT/HCPCS: 0241U; 36415; 71045; 80053; 81003; 82550; 83605; 83690; 83880; 84145; 84484; 85025; 85379; 93005; 96361; 96374; 99284; J2405

== ENCOUNTER → 2022-08-30 08:05 | Outpatient (CLI) | payer OTHER, SELFPAY ==
[2022-02-13 11:32] VITALS: BMI 27.8
--- NOTE | 2022-08-30 | DI.RAD.S_ITS ---
PROCEDURE: FL BARIUM SWALLOW INDICATIONS: Dysphagia COMPARISON: [facility], , UPPER GI AIR CONTRAST WITH KUB, 01/03/2017, 9:18. [facility], CR, XR KNEE 4+ VIEWS LEFT, 05/01/2022, 16:05. FINDINGS: Function: There is mild esophageal dysmotility. No elicited gastroesophageal reflux. There is normal transit of a calibrated barium tablet through the esophagus into the stomach. Morphology: Air-contrast images demonstrate normal mucosal morphology. Single contrast views show no esophageal strictures, extrinsic mass effects, or diverticula. Limited images of the stomach demonstrate normal appearance. IMPRESSION: 1. Mild esophageal dysmotility. Dictated by: Ezio Navarrete M.D. on 08/30/2022 at 10:37 Approved by: Ezio Navarrete M.D. on 08/30/2022 at 10:40
== END ==
PROVIDERS: PCP Family Medicine; Referring Provider Family Medicine; Visit Provider Family Medicine
DX: K22.4 Dyskinesia of esophagus (principal)
CPT/HCPCS: 74220

== ENCOUNTER 2022-10-22 12:20 | Emergency (ER) | payer OTHER, SELFPAY ==
[2022-02-13 11:32] VITALS: BMI 27.8
[2022-10-22] VITALS (25 sets, daily range): BP systolic 105–140; BP diastolic 68–85; PULSE 51–63; RESP 11–26; TEMP 36.6; O2SAT 94–99; BMI 29.2
--- NOTE | 2022-10-22 12:28 | DI.RAD.S_ITS ---
PROCEDURE: XR CHEST 1V INDICATIONS: chest pain TECHNIQUE: One view of the chest was acquired. COMPARISON: [facility], CR, XR CHEST 1V, 02/11/2022, 14:02. FINDINGS: Surgical changes and devices: None. Lungs and pleura: Lungs are clear. No pleural effusions or pneumothorax. Mediastinum: Mediastinal contours appear normal. Heart size is normal. Bones and chest wall: No suspicious bony lesions. Overlying soft tissues appear unremarkable. IMPRESSION: No acute cardiopulmonary abnormalities or focal airspace disease. Dictated by: Landry Gayle M.D. on 10/22/2022 at 12:37 Approved by: Landry Gayle M.D. on 10/22/2022 at 12:38
[2022-10-22] MEDS: ASPIRIN 81 MG CHEW TAB 324 MG PO (12:39)
[2022-10-22 12:48] LABS: INR 1.1 (0.9-1.3); Prothrombin Time 12.4 SECONDS (10.1-12.7)
[2022-10-22 12:49] LABS: Add Manual Diff / Slide Review NO; Basophils Absolute Auto 100 /uL (0-100); Basophils Percent Auto 1.1 % (0-2); Eosinophils Absolute Auto 100 /uL (0-450); Eosinophils Percent Auto 2.3 % (2-4); Hematocrit 43.2 % (41-53); Lymphocytes Absolute Auto 1700 /uL (1100-4500); Lymphocytes Percent Auto 31.5 % (25-40); Mean Corpuscular HGB Conc 34.8 % (30-36); Mean Corpuscular Hemoglobin 31.5 PG (26-34); Mean Corpuscular Volume 90.5 fL (80-100); Monocytes Absolute Auto 500 /uL (0-900); Monocytes Percent Auto 8.5 % (3-14); Neutrophils Absolute Auto 3000 /uL (1500-7000); Neutrophils Percent Auto 56.6 % (50-75); Platelet Count 214 X10^3/uL (150-400); Red Blood Cell Count 4.77 X10^6/uL (4.5-5.9); Red Cell Distribution Width 12.7 % (11.6-14.8); White Blood Cell Count 5.3 X10^3/uL (4.5-11.0)
[2022-10-22 12:50] LABS: PTT Partial Thromboplastin Tim 30 SECONDS (26-36)
[2022-10-22 12:54] LABS: Alanine Aminotransferase 69 IU/L (<50); Albumin 4.4 g/dL (3.5-5.0); Albumin Globulin Ratio 1.7 (1.0-2.8); Alkaline Phosphatase 36 U/L (38-126); Aspartate Aminotransferase 36 IU/L (17-59); BUN Creatinine Ratio 22.6 (6-22); Bilirubin Total 0.5 mg/dL (0.2-1.3); Blood Urea Nitrogen 19 mg/dL (9-20); Calcium 9.2 mg/dL (8.4-10.2); Carbon Dioxide 28 mmol/L (22-32); Chloride 102 mmol/L (98-107); Creatine Kinase 106 U/L (55-170); Estimated Glomerular Filt Rate > 60 mL/min (>60); Globulin 2.6 g/dL (1.7-4.1); Glucose 96 mg/dL (80-110); HEMOLYSIS < 15 (0-50); Lipase 113 U/L (23-300); Magnesium 2.2 mg/dL (1.6-2.3); Potassium 3.9 mmol/L (3.4-5.1); Sodium 138 mmol/L (137-145)
[2022-10-22 13:04] LABS: Troponin I < 0.012 ng/mL (0.01-0.034)
--- NOTE | 2022-10-22 13:09 | ED_ITS ---
HPI - Chest Pain General Chief Complaint: Chest Pain Stated Complaint: chest pain Time Seen by Provider: 10/22/22 12:52 Source: patient Mode of arrival: Ambulatory Limitations: no limitations History of Present Illness HPI narrative: This is a 62-year-old male with history of coronary artery disease who is no longer on aspirin with history of dyslipidemia, cardiac stent, depression and anxiety. Patient states today during amish he started to develop some left- sided chest pressure that radiated towards his left shoulder. He states sort of a dull pain has been persistent had not resolved. He denies shortness of breath no diaphoresis no nausea or vomiting, no rash or skin changes. Did not radiate elsewhere. He got little lightheaded after taking 2 nitro sublingual. His chest pain or pressure did not resolve. States it has been improving while he has been here but is still present at about a 1/2 out of 10. Denies any swelling in his extremities. No fevers no chills no cough cold or congestion. No issues with bowel movements or urination. He has known cardiac history had chest pain and went to [facility] day in 2016 had a stent placed. He is had some similar episodes of chest pressure was taken to the [facility] 1 time was found to have no stentable lesions. He has had a stress test in the last 1-2 years and was told it was normal. Did state that he was told he can stop his aspirin, he is not on aspirin or Plavix, denies any other thinners. States he is taking medication for cholesterol. States no daily blood pressure medications. States no metoprolol beta-blockers he used to be on 1 but it was stopped. Patient states he is had a prior knee surgery. No known drug allergie s. No tobacco, occasional alcohol, no illicit. 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 Dr. Nevarez is his PCP. No long distance travel, no prior embolic history. Related Data Home Medications Medication Instructions Recorded Confirmed ezetimibe 10 mg tablet (Zetia) 10 mg PO QDAY #30 tabs 12/28/15 10/22/22 gabapentin 300 mg capsule 300 mg PO BID ##0 12/28/15 10/22/22 (Neurontin) nitroglycerin 0.4 mg sublingual 0.4 mg sublingual PRN PRN Chest 12/18/16 10/22/22 tablet (Nitrostat) Pain ##0 divalproex 500 mg tablet,delayed 500 mg PO BID ##0 12/19/16 10/22/22 release (Depakote) verapamil 120 mg tablet,extended 1 tab PO QDAY ##0 12/19/16 10/22/22 release clonazepam 0.125 mg disintegrating 0.125 mg PO BEDTIME 06/01/21 10/22/22 tablet pramipexole 0.25 mg tablet 0.25 mg PO DAILY 06/01/21 10/22/22 rosuvastatin 40 mg tablet 40 mg PO ONCE 06/01/21 10/22/22 sumatriptan succinate 25 mg tablet 25 mg PO ONCE 02/22/22 10/22/22 Previous Rx's Medication Instructions Recorded hydrocortisone acetate 25 mg 25 mg MT BEDTIME PRN hemorrhoids 02/11/22 rectal suppository (Anusol-HC) #24 ea Allergies Allergy/AdvReac Type Severity Reaction Status Date / Time No Known Drug Allergies Allergy Verified 04/12/22 09:30 Review of Systems Review of Systems ROS Unobtainable: All systems reviewed & are unremarkable except as noted in HPI and below Patient History Medical History Acute coronary syndrome Anxiety Family History Brother Heart disease Social History household members: spouse Smoking Status: Never smoker Smoking Status: Never smoker alcohol intake frequency: a few times a week Alcohol type: wine Substance Use Type: does not use Exam Narrative Exam Narrative: GENERAL: Alert and oriented x three, male in mild distress. No diaphoresis. HEENT: Head normocephalic, atraumatic, EOMI, pupils reactive, face symmetric, moist mucous membranes NECK: Supple, full range of motion CARDIOVASCULAR: Regular rate and rhythm without murmurs, rubs or gallops. No JVD. No swelling bilateral lower extremities. No rash or skin changes. RESPIRATORY: Breath sounds equal bilaterally, no wheezes rales or rhonchi. No tachypnea or accessory muscle use. ABDOMEN: Soft, nontender. Normoactive bowel sounds all 4 quadrants. No guarding or rebound, rigidity, no mass : No CVA tenderness EXTREMITIES: Normal range of motion, no clubbing or edema. Neurovascularly intact NEUROLOGICAL: Cranial nerves II through XII grossly intact. Moving all extremities SKIN: Warm, dry, no petechiae, no rashes or lesions. Initial Vital Signs Initial Vital Signs: Vital Signs Temperature 98 F 10/22/22 12:27 Pulse Rate 58 L 10/22/22 12:27 Respiratory Rate 20 10/22/22 12:27 Blood Pressure 134/71 10/22/22 12:27 Pulse Oximetry 98 10/22/22 12:27 Oxygen Delivery Method Room Air 10/22/22 12:27 Course Orders Ordered: ED Orders 10/22/22 12:28 XR chest 1V Stat 10/22/22 12:32 BNP [NT-proBNP (BNP-Adult 18+)] Stat Complete Blood Count AUTO DIFF Stat Comprehensive Metabolic Panel Stat Lipase Stat Magnesium Stat PTT Partial Thromboplastin Dedrick Stat Prothrombin Time INR Stat Troponin & CK Cardiac Panel Stat EKG-12 Lead Stat 10/22/22 14:30 Trop I [Troponin I] Stat 10/22/22 16:25 Trop I [Troponin I] Stat 10/22/22 16:31 EKG-12 Lead Routine Discontinued Medications Aspirin (Aspirin 81 Mg Chew Tab) 324 mg PO NOW ONE Stop: 10/22/22 12:29 Last Admin: 10/22/22 12:39 Dose: 324 mg Documented By: SPF Morphine Sulfate (Morphine 4 Mg/Ml Inj) 4 mg IV NOW ONE Stop: 10/22/22 13:31 Last Admin: 10/22/22 13:42 Dose: 4 mg Documented By: NR Vital Signs Vital signs: Vital Signs - 8 hr 10/22/22 12:27 10/22/22 12:27 10/22/22 12:30 Temperature 98 F Pulse Rate 58 L 61 Respiratory Rate 20 26 H Blood Pressure 134/71 125/72 Pulse Oximetry 98 99 Oxygen Delivery Method Room Air 10/22/22 12:30 10/22/22 12:40 10/22/22 12:40 Temperature Pulse Rate 61 63 Respiratory Rate 17 Blood Pressure 118/71 Pulse Oximetry 99 97 Oxygen Delivery Method 10/22/22 12:50 10/22/22 12:50 10/22/22 13:00 Temperature Pulse Rate 55 L Respiratory Rate 11 L Blood Pressure 117/73 114/78 Pulse Oximetry 98 Oxygen Delivery Method 10/22/22 13:00 10/22/22 13:10 10/22/22 13:10 Temperature Pulse Rate 62 62 Respiratory Rate 22 Blood Pressure 112/74 Pulse Oximetry 96 95 Oxygen Delivery Method 10/22/22 13:20 10/22/22 13:20 10/22/22 13:30 Temperature Pulse Rate 59 L Respiratory Rate 17 Blood Pressure 109/76 124/73 Pulse Oximetry 96 Oxygen Delivery Method 10/22/22 13:30 10/22/22 13:40 10/22/22 13:40 Temperature Pulse Rate 59 L 60 Respiratory Rate 26 H 16 Blood Pressure 115/71 Pulse Oximetry 97 95 Oxygen Delivery Method 10/22/22 13:50 10/22/22 13:50 10/22/22 14:00 Temperature Pulse Rate 60 Respiratory Rate 19 Blood Pressure 105/68 111/73 Pulse Oximetry 94 Oxygen Delivery Method 10/22/22 14:00 10/22/22 14:10 10/22/22 14:10 Temperature Pulse Rate 55 L 52 L Respiratory Rate 11 L Blood Pressure 107/72 Pulse Oximetry 94 96 Oxygen Delivery Method 10/22/22 14:20 10/22/22 14:20 10/22/22 14:30 Temperature Pulse Rate 56 L 59 L Respiratory Rate 17 19 Blood Pressure 123/74 Pulse Oximetry 97 97 Oxygen Delivery Method 10/22/22 15:00 10/22/22 15:30 10/22/22 15:44 Temperature Pulse Rate 57 L 54 L Respiratory Rate 14 11 L Blood Pressure 122/80 Pulse Oximetry 96 96 Oxygen Delivery Method 10/22/22 15:44 10/22/22 15:50 10/22/22 15:50 Temperature Pulse Rate 58 L 57 L Respiratory Rate 16 Blood Pressure 126/81 Pulse Oximetry 96 96 Oxygen Delivery Method Room Air Room Air 10/22/22 16:00 10/22/22 16:00 10/22/22 16:10 Temperature Pulse Rate 53 L Respiratory Rate 13 Blood Pressure 134/80 131/79 Pulse Oximetry 97 Oxygen Delivery Method 10/22/22 16:10 10/22/22 16:20 10/22/22 16:20 Temperature Pulse Rate 51 L 57 L Respiratory Rate 13 14 Blood Pressure 121/76 Pulse Oximetry 96 97 Oxygen Delivery Method 10/22/22 16:30 10/22/22 16:30 10/22/22 16:40 Temperature Pulse Rate 58 L 53 L Respiratory Rate 14 Blood Pressure 140/85 Pulse Oximetry 97 97 Oxygen Delivery Method Room Air 10/22/22 16:40 10/22/22 16:50 10/22/22 16:50 Temperature Pulse Rate 53 L Respiratory Rate 17 Blood Pressure 128/78 130/81 Pulse Oximetry 96 Oxygen Delivery Method Room Air 10/22/22 17:00 10/22/22 17:00 Temperature Pulse Rate 52 L Respiratory Rate 24 Blood Pressure 130/80 Pulse Oximetry 97 Oxygen Delivery Method Room Air MDM - Chest Pain Lab Data 10/22/22 12:32 10/22/22 12:32 Labs: Lab Results 10/22/22 10/22/22 10/22/22 Range/Units 12:32 12:32 12:32 WBC 5.3 (4.5-11.0) X10^3/uL RBC 4.77 (4.5-5.9) X10^6/uL Hgb 15.0 (13.5-17.5) g/dL Hct 43.2 (41-53) % MCV 90.5 (80-100) fL MCH 31.5 (26-34) PG MCHC 34.8 (30-36) % RDW 12.7 (11.6-14.8) % Plt Count 214 (150-400) X10^3/uL Neut % (Auto) 56.6 (50-75) % Lymph % (Auto) 31.5 (25-40) % [place] % (Auto) 8.5 (3-14) % Eos % (Auto) 2.3 (2-4) % Baso % (Auto) 1.1 (0-2) % Neut # (Auto) 3000 (1688-8000) /uL Lymph # (Auto) 1700 (4222-4199) /uL [place] # (Auto) 500 (0-900) /uL Eos # (Auto) 100 (0-450) /uL Baso # (Auto) 100 (0-100) /uL PT 12.4 (10.1-12.7) SECONDS INR 1.1 (0.9-1.3) APTT 30 (26-36) SECONDS Sodium 138 (137-145) mmol/L Potassium 3.9 (3.4-5.1) mmol/L Chloride 102 (98-107) mmol/L Carbon Dioxide 28 (22-32) mmol/L BUN 19 (9-20) mg/dL Creatinine 0.84 (0.66-1.25) mg/dL Estimated GFR > 60 (>60) mL/min BUN/Creatinine Ratio 22.6 H (6-22) Glucose 96 (80-110) mg/dL Calcium 9.2 (8.4-10.2) mg/dL Magnesium 2.2 (1.6-2.3) mg/dL Total Bilirubin 0.5 (0.2-1.3) mg/dL AST 36 (17-59) IU/L ALT 69 H (<50) IU/L Alkaline Phosphatase 36 L (38-126) U/L Total Creatine Kinase 106 (55-170) U/L Troponin I < 0.012 (0.01-0.034) ng/mL NT-Pro-B Natriuret Pep (<125) pg/mL Total Protein 7.0 (6.3-8.2) g/dL Albumin 4.4 (3.5-5.0) g/dL Globulin 2.6 (1.7-4.1) g/dL Albumin/Globulin Ratio 1.7 (1.0-2.8) Lipase 113 (23-300) U/L 10/22/22 10/22/22/ Range/Units 12:32 14:30 16:25 WBC (4.5-11.0) X10^3/uL RBC (4.5-5.9) X10^6/uL Hgb (13.5-17.5) g/dL Hct (41-53) % MCV (80-100) fL MCH (26-34) PG MCHC (30-36) % RDW (11.6-14.8) % Plt Count (150-400) X10^3/uL Neut % (Auto) (50-75) % Lymph % (Auto) (25-40) % [place] % (Auto) (3-14) % Eos % (Auto) (2-4) % Baso % (Auto) (0-2) % Neut # (Auto) (2757-5033) /uL Lymph # (Auto) (8639-0356) /uL [place] # (Auto) (0-900) /uL Eos # (Auto) (0-450) /uL Baso # (Auto) (0-100) /uL PT (10.1-12.7) SECONDS INR (0.9-1.3) APTT (26-36) SECONDS Sodium (137-145) mmol/L Potassium (3.4-5.1) mmol/L Chloride (98-107) mmol/L Carbon Dioxide (22-32) mmol/L BUN (9-20) mg/dL Creatinine (0.66-1.25) mg/dL Estimated GFR (>60) mL/min BUN/Creatinine Ratio (6-22) Glucose (80-110) mg/dL Calcium (8.4-10.2) mg/dL Magnesium (1.6-2.3) mg/dL Total Bilirubin (0.2-1.3) mg/dL AST (17-59) IU/L ALT (<50) IU/L Alkaline Phosphatase (38-126) U/L Total Creatine Kinase (55-170) U/L Troponin I < 0.012 < 0.012 (0.01-0.034) ng/mL NT-Pro-B Natriuret Pep < 20 (<125) pg/mL Total Protein (6.3-8.2) g/dL Albumin (3.5-5.0) g/dL Globulin (1.7-4.1) g/dL Albumin/Globulin Ratio (1.0-2.8) Lipase (23-300) U/L ECG Data Attestation: I personally reviewed and interpreted this ECG as follows: Prior ECG tracings: available for review Interpretation: Sinus bradycardia, rate of 53 MT 184 QRS of 102, QTC of 409. No acute ST changes. Patient has prior from 02/11/2022, patient has inverted T-wave 3 with some flattening in AVF but appears similar to prior. Sinus bradycardia rate of 53 MT 180 QRS of [address] QTC [address]. No acute ST changes appears similar in lead 3 from prior. EKG 3. Sinus bradycardia rate of 50 6p are 178 QRS of 104 and QTC of 430. Other acute ST changes T-wave flattened 3. MDM Narrative Medical decision making narrative: This is a 62-year-old male who comes to the emergency department, patient does have cardiac history, initial workup shows ALT of 69 alk-phos 36, negative troponin negative BNP CBC, CMP lipase are all negative. EKG shows possible increase in flipped T-wave in 3 but actually appears quite similar to 02/11/2022. Chest x-ray is negative. Troponin was repeated along with EKG no acute change. Third troponin as well as EKG do not show continuing dynamic changes. Patient took 2 doses of nitro at home without any improvement. He states it is almost resolved we will give 1 dose of morphine here in the department. ON recheck patient is asymptomatic. Patient is reluctant to stay for chest pain observation which I discussed and would recommend. Discussed he does have risk factors, he does not have acute EKG or troponin changes. He would like to return home but we reviewed he does have some high-risk features. Patient is agreeable to stay for 3rd troponin at 4:30 p.m. this would be greater than 6 hours from his initial onset if still negative we will plan for discharge home and he will reach out to his semiconductors wafer breaker tomorrow for close follow-up. Discussed with patient I would have him restarted on 81 mg aspirin daily until he sees his semiconductors wafer breaker. He is not had any recurrence of chest pain. Discussed strict return precautions if he has recurrent chest pain. Discharge Plan Departure Patient Disposition: Home Clinical Impression: Chest pain Instructions: DI for Chest Pain Activity Restrictions/Additional Instructions: Follow up with your semiconductors wafer breaker, call first thing in the morning to set up follow-up. I would recommend you take an 81 mg aspirin daily until you see cardiology. Continue your other home medications as prescribed. Please return for new or recurrent chest pain, shortness of breath, lightheadedness or passing out, increasing swelling of your extremities or other new or concerning changes. Prescriptions: No Action gabapentin [Neurontin] 300 MG capsule 300 mg PO BID Qty: 0 ezetimibe [Zetia] 10 MG tablet 10 mg PO QDAY Qty: 30 nitroglycerin [Nitrostat] 0.4 MG tablet, sublingual 0.4 mg Sublingual PRN PRN (Reason: Chest Pain) Qty: 0 divalproex [Depakote] 500 MG tablet,delayed release (DR/EC) 500 mg PO BID Qty: 0 verapamil 120 MG tablet extended release 1 tab PO QDAY Qty: 0 clonazepam 0.125 mg tablet,disintegrating 0.125 mg PO BEDTIME rosuvastatin 40 mg tablet 40 mg PO ONCE Patient Comments: BEDTIME pramipexole 0.25 mg tablet 0.25 mg PO DAILY Patient Comments: QAM sumatriptan succinate 25 mg tablet 25 mg PO ONCE hydrocortisone acetate [Anusol-HC] 25 mg suppository 25 mg MT BEDTIME PRN (Reason: hemorrhoids) Qty: 24 0RF Referrals: Andrea Nevarez MD [Primary Care Provider] - Stand Alone Forms: Patient Portal/API
[2022-10-22 13:24] LABS: NT-proBNP (BNP-Adult 18+) < 20 pg/mL (<125)
[2022-10-22] MEDS: MORPHINE 4 MG/ML INJ IV (13:42)
[2022-10-22 15:16] LABS: Troponin I < 0.012 ng/mL (0.01-0.034)
--- NOTE | 2022-10-22 16:58 | PC.NURSE ---
Patient's HR displayed 50 on the monitor. Patient denied feeling dizzy, SOB, and chest pain. Pt feels normal. His HR has been between 50-60's.
[2022-10-22 17:00] LABS: Troponin I < 0.012 ng/mL (0.01-0.034)
== END 2022-10-22 17:16 | disposition home or self-care (01) ==
PROVIDERS: Emergency Provider Emergency Medicine; PCP Family Medicine
DX: R07.9 Chest pain, unspecified (principal)
CPT/HCPCS: 36415; 71045; 80053; 82550; 83690; 83735; 83880; 84484; 85025; 85610; 85730; 93005; 96374; 99284; J2270

== ENCOUNTER → 2023-02-02 07:24 | Outpatient (CLI) | payer OTHER, SELFPAY ==
[2022-02-13 11:32] VITALS: BMI 27.8
[2023-02-02 08:41] LABS: Add Manual Diff / Slide Review NO; Basophils Absolute Auto 0 /uL (0-100); Basophils Percent Auto 0.9 % (0-2); Eosinophils Absolute Auto 100 /uL (0-450); Eosinophils Percent Auto 2.7 % (2-4); Hematocrit 42.8 % (41-53); Hemoglobin 14.9 g/dL (13.5-17.5); Lymphocytes Absolute Auto 1200 /uL (1100-4500); Lymphocytes Percent Auto 31.7 % (25-40); Mean Corpuscular HGB Conc 34.8 % (30-36); Mean Corpuscular Hemoglobin 32.1 PG (26-34); Mean Corpuscular Volume 92.2 fL (80-100); Monocytes Absolute Auto 400 /uL (0-900); Monocytes Percent Auto 9.8 % (3-14); Neutrophils Absolute Auto 2000 /uL (1500-7000); Neutrophils Percent Auto 54.9 % (50-75); Platelet Count 224 X10^3/uL (150-400); Red Blood Cell Count 4.64 X10^6/uL (4.5-5.9); Red Cell Distribution Width 12.4 % (11.6-14.8); White Blood Cell Count 3.7 X10^3/uL (4.5-11.0)
[2023-02-02 08:44] LABS: Blood Urea Nitrogen 17 mg/dL (9-20); Calcium 9.2 mg/dL (8.4-10.2); Carbon Dioxide 29 mmol/L (22-32); Chloride 102 mmol/L (98-107); Cholesterol 132 mg/dL (140-199); Estimated Glomerular Filt Rate > 60 mL/min (>60); Glucose 103 mg/dL (80-110); HDL Cholesterol 41 mg/dL (40-60); HEMOLYSIS < 15 (0-50); LDL Cholesterol Calculated 70 mg/dL (<100); Potassium 3.9 mmol/L (3.4-5.1); Sodium 138 mmol/L (137-145); Triglycerides 105 mg/dL (35-150)
== END ==
PROVIDERS: PCP Family Medicine; Referring Provider Internal Medicine Cardiovascular Disease; Visit Provider Internal Medicine Cardiovascular Disease
DX: E78.5 Hyperlipidemia, unspecified (principal); I25.10 Atherosclerotic heart disease of native coronary artery without angina pectoris
CPT/HCPCS: 36415; 80048; 80061; 85025

== ENCOUNTER → 2023-04-06 15:17 | Outpatient (ROUT) | payer OTHER, SELFPAY ==
[2022-02-13 11:32] VITALS: BMI 27.8
[2023-04-06 16:53] LABS: Influenza A - CEPHEID Flu A NEGATIVE (NEGATIVE); Influenza B - CEPHEID Flu B NEGATIVE (NEGATIVE); Respiratory Syncytial Virus POSITIVE (Negative)
[2023-04-06 16:54] LABS: COVID-19 CEPHEID 4-PLEX PCR Negative (Negative)
== END ==
PROVIDERS: PCP Family Medicine; Visit Provider Family Medicine
DX: R05.1 Acute cough (principal); R52 Pain, unspecified; R50.9 Fever, unspecified
CPT/HCPCS: 0241U

== ENCOUNTER → 2023-05-21 10:28 | Outpatient (ROUT) | payer MEDICARE, OTHER, SELFPAY ==
[2022-02-13 11:32] VITALS: BMI 27.8
[2023-05-21 14:39] LABS: Influenza A - CEPHEID Flu A NEGATIVE (NEGATIVE); Influenza B - CEPHEID Flu B NEGATIVE (NEGATIVE); Respiratory Syncytial Virus Negative (Negative)
[2023-05-21 14:55] LABS: COVID-19 CEPHEID 4-PLEX PCR Negative (Negative)
== END ==
PROVIDERS: PCP Family Medicine; Visit Provider Registered Nurse
DX: R05.1 Acute cough (principal)
CPT/HCPCS: 0241U

== ENCOUNTER → 2023-06-30 08:40 | Outpatient (CLI) | payer MEDICARE, OTHER, SELFPAY ==
[2022-02-13 11:32] VITALS: BMI 27.8
--- NOTE | 2023-06-30 | DI.MRI.S_ITS ---
PROCEDURE: MR LUMBAR SPINE WO CON INDICATIONS: Low back pain TECHNIQUE: Noncontrast sagittal T1 spin echo and T2 fast echo, sagittal STIR, and T2 fast spin echo through the lumbar spine. In cases with scoliosis, additional coronal T2 fast spin echo may be performed. COMPARISON: [facility], CT, ABDOMEN/PELVIS WITH CONTRAST, 07/23/2012, 13:55. FINDINGS: Image quality: Diagnostic Alignment and Curvature: There is minimal retrolisthesis seen at the L2-L3 level. Bone Marrow: Marrow is of normal overall signal. No acute vertebral body compression fractures. Spinal Cord: Conus medullaris terminates at the L1 level. Visualized cord demonstrates normal signal and size. Paraspinous Soft Tissues: No paravertebral masses. T12-L1: Normal appearance. L1-L2: Normal appearance. L2-L3: Mild loss of disc height is seen. Loss of disc signal is seen. Mild generalized disc bulge is seen. There is a superimposed central disc protrusion. There is a focal annular fissure seen posteriorly. There is moderate right-sided and [id number] left-sided neural foraminal narrowing seen. Moderate central canal narrowing is seen. L3-L4: The disc height is well-preserved. Loss of disc signal is seen at this level. Moderate generalized disc bulge is seen. There is a superimposed central disc protrusion. There is a focal annular fissure seen posteriorly. Mild to moderate facet hypertrophy is seen. There is at least moderate bilateral neural foraminal narrowing seen. Moderate central canal narrowing is seen. L4-L5: The disc height is well-preserved. Loss of disc signal is seen at this level. Moderate generalized disc bulge is seen. There is a superimposed central disc protrusion. Moderate facet joint hypertrophy is seen. Associated hypertrophy of the ligamentum flavum can be seen. There is at least moderate bilateral neural foraminal narrowing seen, left worse than right. Moderate central canal narrowing is seen. L5-S1: The disc height and disk signal are well-preserved. Mild generalized disc bulge is seen. Mild to moderate facet hypertrophy is seen. Moderate bilateral neural foraminal narrowing is seen. No central canal narrowing is seen. IMPRESSION: Multiple levels of lumbar spine degenerative change can be seen, which are overall worst at L3-L4 and L4-L5. Dictated by: Tyler Drew M.D. on 07/02/2023 at 17:02 Approved by: Tyler Drew M.D. on 07/02/2023 at 17:06
== END ==
PROVIDERS: PCP Family Medicine; Referring Provider Family Medicine; Visit Provider Family Medicine
DX: M47.816 Spondylosis without myelopathy or radiculopathy, lumbar region (principal); M47.817 Spondylosis without myelopathy or radiculopathy, lumbosacral region; M54.50 Low back pain, unspecified
CPT/HCPCS: 72148

== ENCOUNTER → 2023-10-25 08:59 | Outpatient (CLI) | payer MEDICARE, OTHER, SELFPAY ==
[2022-02-13 11:32] VITALS: BMI 27.8
--- NOTE | 2023-10-25 09:01 | DI.NM.S_ITS ---
PROCEDURE: NM BONE SPECT RADIOPHARMACEUTICAL: 21.9 mCi Tc-99m MDP IV. INDICATIONS: bone SPECT of lumbar pelvis to eval for arthritis TECHNIQUE: Delayed bone scintigrams were obtained of the region of interest 3-4 hours after intravenous administration of Tc-99m MDP. Additional tomographic (SPECT) imaging was performed and displayed in axial, coronal, and sagittal planes. COMPARISON: [facility], MR, MR LUMBAR SPINE WO CON, 06/30/2023, 9:04. FINDINGS: Multiple foci of mild degenerative change can be seen. No significant focal area pathologic radiotracer uptake can be seen. IMPRESSION: Generalized degenerative changes, without a focal pathologic area of abnormal radiotracer uptake. Dictated by: Tyler Drew M.D. on 10/25/2023 at 14:48 Approved by: Tyler Drew M.D. on 10/25/2023 at 14:50
== END ==
LOC: NUCM 09:00
PROVIDERS: Family Provider Family Medicine; PCP Family Medicine; Referring Provider Orthopaedic Surgery; Visit Provider Orthopaedic Surgery
DX: M41.9 Scoliosis, unspecified (principal)
CPT/HCPCS: 78305; A9503

== ENCOUNTER → 2023-11-08 07:54 | Outpatient (CLI) | payer MEDICARE, OTHER, SELFPAY ==
[2022-02-13 11:32] VITALS: BMI 27.8
== END ==
LOC: PHYS 07:57
PROVIDERS: Family Provider Family Medicine; PCP Family Medicine; Referring Provider Orthopaedic Surgery; Visit Provider Orthopaedic Surgery
DX: M41.9 Scoliosis, unspecified (principal); M54.16 Radiculopathy, lumbar region
CPT/HCPCS: 95886; 95909

== ENCOUNTER → 2024-02-15 06:52 | Outpatient (CLI) | payer MEDICARE, OTHER, SELFPAY ==
[2022-02-13 11:32] VITALS: BMI 27.8
[2024-02-15 08:38] LABS: Hematocrit 44.7 % (41-53); Hemoglobin 15.4 g/dL (13.5-17.5); Mean Corpuscular HGB Conc 34.4 % (30-36); Mean Corpuscular Hemoglobin 32.1 PG (26-34); Mean Corpuscular Volume 93.1 fL (80-100); Platelet Count 262 X10^3/uL (150-400); Red Cell Distribution Width 12.7 % (11.6-14.8)
[2024-02-15 09:10] LABS: BUN Creatinine Ratio 17.2 (6-22); Blood Urea Nitrogen 15 mg/dL (9-20); Calcium 9.5 mg/dL (8.4-10.2); Carbon Dioxide 25 mmol/L (22-32); Chloride 105 mmol/L (98-107); Cholesterol 143 mg/dL (140-199); Estimated Glomerular Filt Rate > 60 mL/min (>60); Glucose 90 mg/dL (80-110); HDL Cholesterol 46 mg/dL (40-60); HEMOLYSIS < 15 (0-50); LDL Cholesterol Calculated 73 mg/dL (<100); Potassium 4.3 mmol/L (3.4-5.1); Sodium 138 mmol/L (137-145); Triglycerides 121 mg/dL (35-150)
== END ==
PROVIDERS: Family Provider Family Medicine; PCP Family Medicine; Referring Provider Internal Medicine Cardiovascular Disease; Visit Provider Internal Medicine Cardiovascular Disease
DX: I25.10 Atherosclerotic heart disease of native coronary artery without angina pectoris (principal)
CPT/HCPCS: 36415; 80048; 80061; 85027

== ENCOUNTER → 2024-05-19 13:44 | Outpatient (CLI) | payer MEDICARE, OTHER, SELFPAY ==
[2024-03-25 15:58] VITALS: BMI 27.8
--- NOTE | 2024-05-19 13:46 | DI.MRI.S_ITS ---
PROCEDURE: MR KNEE LT WO CON INDICATIONS: pain in left knee TECHNIQUE: Noncontrast sagittal PD fast spin echo and T2 fast spin echo with fat saturation, sagittal 3-D FLASH with fat saturation; coronal T1 spin echo and PD fast spin echo with fat saturation, and axial PD fast spin echo with fat saturation through the knee. COMPARISON: None. FINDINGS: Image quality: Excellent. Menisci: Horizontal and oblique tears are seen involving body and posterior horn of medial meniscus extending to both superior and inferior articulating surfaces. The lateral meniscus is intact. Cruciate ligaments: The anterior cruciate ligament is mildly thickened with intrasubstance T2 hyperintense signal. The posterior cruciate ligament is intact. Medial structures: The medial collateral ligament appears intact. Visualized portions of the pes anserinus tendons appear normal. No abnormal bursal fluid. Lateral structures: The lateral collateral ligament, long and short heads of the biceps femoris tendon appear intact. The popliteus tendon appears normal. Iliotibial band appears normal. Anterior structures: The quadriceps and patellar tendons appear intact. Patellar alignment is normal. Bones and cartilage: No bone marrow contusions or fractures. Obss-qi-lurgnyra tricompartmental osteoarthritis and chondromalacia more notably in medial femoral tibial compartment. Joint space: There is small knee joint fluid. No Root's cyst. Normal appearing synovial plicae are incidentally noted. IMPRESSION: 1. Horizontal and oblique tears involving body and posterior horn of medial meniscus extending to both superior and inferior articulating surfaces. The lateral meniscus is intact. 2. Low-grade ACL sprain. No ACL rupture. The PCL is intact. 3. [id number]-[id number] tricompartmental osteoarthritis and chondromalacia most notably in medial femoral tibial compartment. No fracture or dislocation. Small joint effusion, no loose bodies. Dictated by: Jeremiah Bragg M.D. on 05/19/2024 at 15:31 Approved by: Jeremiah Bragg M.D. on 05/19/2024 at 15:37
== END ==
PROVIDERS: Family Provider Family Medicine; PCP Family Medicine; Referring Provider Family Medicine; Visit Provider Family Medicine
DX: S83.242A Other tear of medial meniscus, current injury, left knee, initial encounter (principal); S83.512A Sprain of anterior cruciate ligament of left knee, initial encounter; M25.562 Pain in left knee; M17.12 Unilateral primary osteoarthritis, left knee; M94.262 Chondromalacia, left knee; M25.462 Effusion, left knee
CPT/HCPCS: 73721

== ENCOUNTER → 2024-07-07 16:38 | Outpatient (CLI) | payer MEDICARE, OTHER, SELFPAY ==
[2024-03-25 15:58] VITALS: BMI 27.8
--- NOTE | 2024-07-07 16:40 | DI.RAD.S_ITS ---
PROCEDURE: XR LUMBAR SPINE MIN 4V INDICATIONS: BACK PAIN TECHNIQUE: 5 views of the lumbar spine acquired, including oblique views. COMPARISON: None. FINDINGS: Bones: 5 nonrib-bearing vertebrae are present. There is normal bony alignment. No vertebral body compression fractures. No suspicious bony lesions. [id number] disc height loss, most prominent at L2-3, L4-5. Facet arthrosis of L2 through S1. Soft tissues: Overlying bowel gas pattern is normal. No suspicious soft tissue calcifications. . IMPRESSION: Mild to moderate, multilevel degenerative disc disease and lower lumbar facet arthrosis. Dictated by: Ervin Uriostegui M.D. on 07/07/2024 at 17:03 Approved by: Ervin Uriostegui M.D. on 07/07/2024 at 17:04
== END ==
PROVIDERS: Family Provider Family Medicine; PCP Family Medicine; Referring Provider Family Medicine; Visit Provider Physical Medicine & Rehabilitation
DX: M51.369 Other intervertebral disc degeneration, lumbar region without mention of lumbar back pain or lower extremity pain (principal); M47.816 Spondylosis without myelopathy or radiculopathy, lumbar region; M47.817 Spondylosis without myelopathy or radiculopathy, lumbosacral region; M54.9 Dorsalgia, unspecified
CPT/HCPCS: 72110

== ENCOUNTER 2024-07-15 14:55 | Outpatient (CLI) | payer MEDICARE, OTHER, SELFPAY ==
[2024-03-25 15:58] VITALS: BMI 27.8
[2024-07-15] VITALS (9 sets, daily range): BP systolic 116–161; BP diastolic 67–84; PULSE 62–76; RESP 14–19; TEMP 36.2; O2SAT 96–100
[2024-07-15] MEDS: MIDAZOLAM 2 MG/2 ML VIAL IV (16:11)
[2024-07-15] MEDS: iopamidoL 15 ML VIAL 3 ML INJ (16:17)
[2024-07-15] MEDS: DEXAMETHASONE 10 MG/ML VIAL 20 MG INJ (16:17)
[2024-07-15] MEDS: BUPIVACAINE 0.25% (PF) VIAL 2 ML INJ (16:17)
[2024-07-15] MEDS: BETAMETHASONE 30 MG/5 ML MDV 12 MG INJ (16:18)
[2024-07-15] MEDS: BETAMETHASONE 30 MG/5 ML MDV 6 MG INJ (16:19)
--- NOTE | 2024-07-15 16:34 | P.PCN_ITS ---
Date/Time/Diagnoses Date of procedure: 07/15/24 Time of procedure: 16:34 Pre-procedure diagnosis: 1. FORAMINAL STENOSIS WITH LE SYMPTOMS Post-procedure diagnosis: same Procedure Notes Procedure: 1. FLUOROSCOPICALLY GUIDED CONTRAST CONTROLLED TRANSFORAMINAL EPIDURAL STEROID INJECTION - RIGHT L4/5 TFESI Indications: Hermelindo is referred by Dr. Nevarez for treatment of Foraminal Stenosis with Right LE Symptoms Physician: Salvador Min Total Fluoroscopy time (seconds): 20 Total sedation minutes: 17 Complications: none Procedure in detail & Post-procedure care: FINDINGS Foraminal Nerve Root Compression secondary to disc disease and facet hypertrophy DESCRIPTION OF PROCEDURE Following review of allergy and review of potential side effects and complications, including, but not necessarily limited to, infection, allergic reaction, local tissue breakdown, stroke, temporary or permanent nerve injury, paralysis, and possible , the patient indicated that the patient understood and agreed to proceed. An informed consent document was signed by the patient, witnessed by a nurse, and placed in the patient's chart. Additionally, other treatment options including medications, modalities, and physical therapy were reviewed with the patient. After review of previous anaesthesic history and IV conscious sedation the patient was deemed safe to proceed with today?s procedure with IV conscious sedation as ASA class II designation. Safety time-out was performed to confirm patient ID, procedure to be performed and site of procedure. IV sedation was accomplished with a combination of 2mg of Versed was administered by the RN after DO order, titrated to patient comfort during the course of the procedure while the patient remained responsive to all verbal commands In the prone position following sterile prep and drape of the lumbar region, the right L4/5 posterior neuroforamen was identified fluoroscopically. The skin was anesthetized via a 25-gauge 1.5-inch needle with 1% lidocaine solution. At this point, a 25-gauge 3.5-inch spinal needle was atraumatically introduced and advanced under fluoroscopic guidance through the posterior right L4/5 neuroforamen to approximately the anterior aspect of the canal. Depth was confirmed on lateral view. Following negative aspiration, injection of approximately 1.5cc of Isovue 200 under live fluoroscopy in the AP view co nfirmed excellent flow along the nerve root, into the epidural space without vascular or intrathecal uptake observed Radiological data, including multiple fluoroscopic views of the lumbosacral spin e, reveal a spinal needle at the right L4/5 posterior neuroforamen. Subsequent views show flow of contrast material flowing superiorly and inferiorly along the nerve root confirming epidural flow. Subsequently, a test dose of 1.5 cc of 1% lidocaine solution was administered and patient was observed for two minutes for signs or symptoms of complications, including abdominal pain, shortness of breath, bilateral upper or lower extremity weakness, nausea and vomiting, prior to steroid injection. At this point, a total of 2cc or 10mg of dexamethasone and 6mg of betamethasone was injected without incident. The procedure tolerated the procedure well without signs or symptoms of complications prior to transfer to the recovery area continued monitoring without incident. The patient was then transferred to the recovery area where they were observed for an appropriate time after the injection. The patient reported a VAS score of 8 prior to the procedure and a post- procedure VAS of 1. POST OP INSTRUCTIONS The patient was provided a Pain Log to continue to record their response to the target-specific procedure prior to follow-up visit with their referring physician. Additionally, specific post-injection care instructions and a contact number to our office were provided if concerns arise regarding possible complications associated with the procedure are suspected.
--- NOTE | 2024-07-15 16:35 | P.PCN_ITS ---
Date/Time/Diagnoses Date of procedure: 07/15/24 Time of procedure: 16:35 Pre-procedure diagnosis: FORAMINAL STENOSIS WITH LE SYMPTOMS Post-procedure diagnosis: same Procedure Notes Procedure: 1. FLUOROSCOPICALLY GUIDED CONTRAST CONTROLLED TRANSFORAMINAL EPIDURAL STEROID INJECTION - RIGHT L5/S1 TFESI Indications: Hermelindo is referred by Dr. Nevarez for treatment of Foraminal Stenosis with Right LE Symptoms Physician: Salvador Min Total Fluoroscopy time (seconds): 20 Total sedation minutes: 17 Complications: none Procedure in detail & Post-procedure care: FINDINGS Foraminal Nerve Root Compression secondary to disc disease and facet hypertrophy DESCRIPTION OF PROCEDURE Following review of allergy and review of potential side effects and complications, including, but not necessarily limited to, infection, allergic re action, local tissue breakdown, stroke, temporary or permanent nerve injury, paralysis, and possible , the patient indicated that the patient understood and agreed to proceed. An informed consent document was signed by the patient, witnessed by a nurse, and placed in the patient's chart. Additionally, other treatment options including medications, modalities, and physical therapy were reviewed with the patient. After review of previous anaesthesic history and IV conscious sedation the patient was deemed safe to proceed with today?s procedure with IV conscious sedation as ASA class II designation. Safety time-out was performed to confirm patient ID, procedure to be performed and site of procedure. IV sedation was accomplished with a combination of 2mg of Versed was administered by the RN after DO order, titrated to patient comfort during the course of the procedure while the patient remained responsive to all verbal commands In the prone position following sterile prep and drape of the lumbar region, the right L5/S1 posterior neuroforamen was identified fluoroscopically. The skin was anesthetized via a 25-gauge 1.5-inch needle with 1% lidocaine solution. At this point, a 25-gauge 3.5-inch spinal needle was atraumatically introduced and advanced under fluoroscopic guidance through the posterior right L5/S1 neuroforamen to approximately the anterior aspect of the canal. Depth was confirmed on lateral view. Following negative aspiration, injection of approximately 1.5cc of Isovue 200 under live fluoroscopy in the AP view confirmed excellent flow along the nerve root, into the epidural space without vascular or intrathecal uptake observed Radiological data, including multiple fluoroscopic views of the lumbosacral spine, reveal a spinal needle at the right L5/S1 posterior neuroforamen. Subsequent views show flow of contrast material flowing superiorly and inferiorly along the nerve root confirming epidural flow. Subsequently, a test dose of 1.5 cc of 1% lidocaine solution was administered and patient was observed for two minutes for signs or symptoms of complications, including abdominal pain, shortness of breath, bilateral upper or lower extrem ity weakness, nausea and vomiting, prior to steroid injection. At this point, a total of 2cc or 10mg of dexamethasone and 6mg of betamethasone was injected without incident. The procedure tolerated the procedure well without signs or symptoms of complications prior to transfer to the recovery area continued monitoring without incident. The patient was then transferred to the recovery area where they were observed for an appropriate time after the injection. The patient reported a VAS score of 8 prior to the procedure and a post- procedure VAS of 1. POST OP INSTRUCTIONS The patient was provided a Pain Log to continue to record their response to the target-specific procedure prior to follow-up visit with their referring physician. Additionally, specific post-injection care instructions and a contact number to our office were provided if concerns arise regarding possible complications associated with the procedure are suspected.
== END 2024-07-15 16:45 | disposition home or self-care (01) ==
PROVIDERS: Family Provider Family Medicine; PCP Family Medicine; Referring Provider Physical Medicine & Rehabilitation; Visit Provider Physical Medicine & Rehabilitation
DX: M48.07 Spinal stenosis, lumbosacral region (principal); M48.061 Spinal stenosis, lumbar region without neurogenic claudication; M51.16 Intervertebral disc disorders with radiculopathy, lumbar region; M51.17 Intervertebral disc disorders with radiculopathy, lumbosacral region; M47.26 Other spondylosis with radiculopathy, lumbar region; M47.27 Other spondylosis with radiculopathy, lumbosacral region
CPT/HCPCS: 64483; 64484; 99152; J0702; J1100; J2250; J3490

== ENCOUNTER → 2024-08-11 15:00 | Outpatient (CLI) | payer MEDICARE, OTHER, SELFPAY ==
[2024-03-25 15:58] VITALS: BMI 27.8
--- NOTE | 2024-08-11 15:04 | DI.RAD.S_ITS ---
PROCEDURE: XR CHEST 2V INDICATIONS: Acute cough TECHNIQUE: 2 views of the chest were acquired. COMPARISON: None. FINDINGS: Surgical changes and devices: None. Lungs and pleura: Lungs are clear. No pleural effusions or pneumothorax. Mediastinum: Mediastinal contours are normal. Heart size is normal. Bones and chest wall: No suspicious bony abnormalities. Soft tissues appear unremarkable. IMPRESSION: No acute cardiopulmonary abnormality is seen. Dictated by: Jake Curtis M.D. on 08/11/2024 at 16:04 Approved by: Jake Curtis M.D. on 08/11/2024 at 16:04
== END ==
LOC: RAD 15:02
PROVIDERS: Family Provider Family Medicine; PCP Family Medicine; Referring Provider Family Medicine; Visit Provider Family Medicine
DX: R05.1 Acute cough (principal)
CPT/HCPCS: 71046

== ENCOUNTER 2025-02-05 08:09 | Outpatient (CLI) | payer MEDICARE, OTHER, SELFPAY ==
[2025-01-28 15:01] VITALS: BMI 27.8
[2025-02-05] VITALS (8 sets, daily range): BP systolic 118–161; BP diastolic 69–94; PULSE 65–80; RESP 14–20; TEMP 36.7; O2SAT 96–100
[2025-02-05] MEDS: MIDAZOLAM 2 MG/2 ML VIAL IV ×2 (09:19→09:26)
[2025-02-05] MEDS: LIDOCAINE 2% INJ MDV 20ML 5 ML INJ (09:28)
[2025-02-05] MEDS: LIDOCAINE 1% 20 ML INJ (09:29)
--- NOTE | 2025-02-05 09:38 | P.PCN_ITS ---
Date/Time/Diagnoses Date of procedure: 02/05/25 Time of procedure: 09:38 Pre-procedure diagnosis: 1. FACET ARTHROPATHY Post-procedure diagnosis: same Procedure Notes Procedure: 1. BILATERAL- L4, L5 and S1 DIAGNOSTIC MB BLOCKS with SA Anesthetic Indications: Hermelindo is referred by Dr. Nevarez for treatment of Bilateral Axial LBP. Physician: Salvador Min Total Fluoroscopy time (seconds): 9 Total sedation minutes: 16 Complications: none Procedure in detail & Post-procedure care: DESCRIPTION OF PROCEDURE Fluoroscopically guided, contrast-controlled bilateral L4, L5 and S1 medial branch blocks with 0.5cc of 2% Lidocaine. Following review of allergy and review of potential side effects and complications, including, but not necessarily limited to, infection, allergic reaction, local tissue breakdown, nerve injury, paralysis, stroke and possible , the patient indicated that the patient understood and agreed to proceed. An informed consent document was signed by the patient, witnessed by a nurse, and placed in the patient's chart. After review of previous anaesthesic history and IV conscious sedation the patient was deemed safe to proceed with today's procedure with IV conscious sedation as ASA class II designation. Safety time-out was performed to confirm patient ID, procedure to be performed and site of procedure. IV sedation was accomplished with a combination of 4mg of Versed was administered by the RN after DO order, titrated to patient comfort during the course of the procedure while the patient remained responsive to all verbal commands In the prone position, following sterile prep and drape of the lumbar region, the right L4, L5 and S1 anatomical location of the medial branch of the dorsal ramus was identified fluoroscopically. Subsequently an anesthetic skin wheal u sing 1% lidocaine solution was initiated at each of the anatomical spots. Subsequently then a 22-gauge 3.5-inch spinal needle was atraumatically introduced and advanced under fluoroscopic guidance at each of the corresponding sites at the right L4, L5 and S1 MB. After negative aspiration, 0.2cc of Isovue 200 was injected, confirming placement without vascular or intrathecal uptake. Subsequently then 0.5cc of 2% Lidocaine solution was injected at each of the corresponding sites at the right L4, L5 and S1 medial branch locations. The identical procedure was replicated on the left. The patient tolerated the procedure well without signs or symptoms of complications prior to transfer to the recovery area continued monitoring without incident. Post-procedure, the patient was monitored initiating provocative activities to measure the amount of relief from block of the facetogenic pain. The patient reported a VAS of 7 prior to the procedure and a post-procedure VAS of 1. It has been a pleasure to assist in the diagnostic and therapeutic care of your patient. POST OP INSTRUCTIONS The patient was provided with a Pain Log to complete over the next several hours and subsequent days prior to the patient's follow up with the ordering physician. If the patient has bridge mechanic relief to the solution applied, then they may be a candidate for medial branch rhizotomy. The patient is aware, was provided, once again, with a Pain Log and will follow up with the referring physician for review and clinical correlation
== END 2025-02-05 10:15 | disposition home or self-care (01) ==
LOC: RAD 08:10
PROVIDERS: Family Provider Family Medicine; PCP Family Medicine; Referring Provider Physical Medicine & Rehabilitation; Visit Provider Physical Medicine & Rehabilitation
DX: M47.816 Spondylosis without myelopathy or radiculopathy, lumbar region (principal); M47.817 Spondylosis without myelopathy or radiculopathy, lumbosacral region
CPT/HCPCS: 64493; 64494; 99152; J2250

== ENCOUNTER → 2025-03-16 06:50 | Outpatient (CLI) | payer MEDICARE, OTHER, SELFPAY ==
[2025-01-28 15:01] VITALS: BMI 27.8
[2025-03-16 08:55] LABS: Hematocrit 43.0 % (41-53); Hemoglobin 15.3 g/dL (13.5-17.5); Mean Corpuscular HGB Conc 35.7 % (30-36); Mean Corpuscular Hemoglobin 32.8 PG (26-34); Mean Corpuscular Volume 91.9 fL (80-100); Platelet Count 218 X10^3/uL (150-400)
[2025-03-16 09:24] LABS: Blood Urea Nitrogen 16 mg/dL (9-20); Calcium 9.3 mg/dL (8.4-10.2); Carbon Dioxide 27 mmol/L (22-32); Chloride 105 mmol/L (98-107); Cholesterol 134 mg/dL (140-199); Estimated Glomerular Filt Rate > 60 mL/min (>60); Glucose 100 mg/dL (70-99); HDL Cholesterol 57 mg/dL (40-60); HEMOLYSIS < 15 (0-50); Potassium 4.1 mmol/L (3.4-5.1); Sodium 140 mmol/L (137-145); Triglycerides 126 mg/dL (35-150)
== END ==
PROVIDERS: Family Provider Family Medicine; PCP Family Medicine; Referring Provider Family Medicine; Visit Provider Internal Medicine Cardiovascular Disease
DX: I25.10 Atherosclerotic heart disease of native coronary artery without angina pectoris (principal)
CPT/HCPCS: 36415; 80048; 80061; 85027

== ENCOUNTER 2025-03-17 10:35 | Outpatient (CLI) | payer MEDICARE, OTHER, SELFPAY ==
[2025-01-28 15:01] VITALS: BMI 27.8
[2025-03-17] VITALS (32 sets, daily range): BP systolic 54–157; BP diastolic 36–91; PULSE 34–83; RESP 10–20; TEMP 36.7; O2SAT 86–99
[2025-03-17] MEDS: fentaNYL 100 MCG/2 ML INJ 50 MCG IM (11:59)
[2025-03-17] MEDS: MIDAZOLAM 2 MG/2 ML VIAL IV (11:59)
[2025-03-17] MEDS: fentaNYL 100 MCG/2 ML INJ 50 MCG IV (12:03)
[2025-03-17] MEDS: LIDOCAINE 1% 20 ML 5 ML INJ (12:08)
--- NOTE | 2025-03-17 12:37 | P.PCN_ITS ---
Date/Time/Diagnoses Date of procedure: 03/17/25 Time of procedure: 12:37 Pre-procedure diagnosis: 1. RECALCITRANT FACET ARTHROPATHY Post-procedure diagnosis: same Procedure Notes Procedure: 1. BILATERAL L4 AND L5 MEDIAL BRANCH RADIOFREQUENCY NEUROTOMY AND S1 DORSAL RAMUS BRANCH RADIOFREQUENCY NEUROTOMY Indications: Hermelindo is referred by Dr. Nevarez for treatment of facet arthropathy. Physician: Salvador Min Total Fluoroscopy time (seconds): 18 Total sedation minutes: 34 Complications: none Procedure in detail & Post-procedure care: DESCRIPTION OF PROCEDURE Bilateral L4 and L5 medial branch radiofrequency neurotomy and bilateral S1 dorsal ramus radiofrequency neurotomy under fluoroscopy with conscious sedation. The patient is well known to this clinic having undergone previous facet injections with good but temporary relief. The patient has experienced appropriate, concordant relief with previous facet and median branch blocks but the patient's pain has been recalcitrant to further conservative measures. Therefore, based upon the patient's relief and persistent symptoms, the patient is considered an appropriate candidate for facet rhizotomy. All of the patient's questions regarding the risks versus benefits of the procedure, including, but not limited to, bleeding, infection, temporary as well as lasting nerve injury, paralysis, stroke, and , as well treatment alternatives were answered to satisfaction. After obtaining informed consent, denial of pertinent drug allergies, as well as being made aware of the potential risks of bleeding, infection, spinal cord trauma, paralysis, temporary and permanent nerve damage, seizure, stroke, and possible , the patient was brought to the fluoroscopy suite and positioned prone on the fluoroscopy table. The lumbar region was prepped in usual sterile fashion and covered with a fenestrated drape in the usual sterile fashion. Appropriate monitors applied including pulse oximeter, pulse, and blood pressure for regular monitoring throughout the procedure. After review of previous anaesthesic history and IV conscious sedation the patient was deemed safe to proceed with today's procedure with IV conscious sedation as ASA class II designation. Safety time-out was performed to confirm patient ID, procedure to be performed and site of procedure. IV sedation was accomplished with a combination of 2mg of Versed and 100mcg of Fentanyl was administered by the RN after DO order, titrated to patient comfort during the course of the procedure while the patient remained responsive to all verbal commands. After local infiltration using 1% lidocaine, under fluoroscopic guidance, a 10- cm RF insulated needle with a 10-mm active tip was positioned parallel to the junction of the right sacral ala and the superior articulating process where the S1 dorsal ramus resides. Needle placement was confirmed with motor stimulation of .5v on the right which produced local stimulation without radicular component. The stimulation was then increased to 2v with, once again, only local multifidus stimulation without radicular component. The needle was then removed and the identical procedure was performed along the length of the right L5 medial branch with motor stimulation at .7v on the right. The identical procedure was once again performed along the length of the right L4 medial branch with motor stimulation of .5v on the right. The medial branches were then anesthetised with 0.5% Marcaine. This was then followed by two discreet lesions performed at 80 degrees Celsius for 90 seconds each. The identical procedure was repeated on the left. The patient tolerated the procedure well without signs or symptoms of complications prior to transfer to the recovery area continued monitoring without incident. The patient was then transferred to the recovery area where they were observed for an appropriate period of time after the injection. The patient reported a VAS score of 9 prior to the procedure and a post-procedure VAS of 0. POST OP INSTRUCTIONS The patient was provided a Pain Log to continue to record the patient's response to the target-specific procedure prior to the patient's follow-up visit with the referring physician. Additionally, specific post-injection care instructions and a contact number to our office were provided if concerns arise regarding possible complications associated with the procedure are suspected.
[2025-03-17] MEDS: SODIUM CHLORIDE 0.9% 500 ML 1000 ML IV ×2 (13:00→13:20)
[2025-03-17] MEDS: ATROPINE 1 MG/10 ML SYRINGE IV (13:05)
[2025-03-17] MEDS: FLUMAZENIL 0.5 MG/5 ML MDV 0.2 MG IV (13:13)
[2025-03-17] MEDS: ONDANSETRON 4 MG/2 ML INJ IV (13:15)
== END 2025-03-17 15:15 | disposition home or self-care (01) ==
LOC: RAD 10:36
PROVIDERS: Family Provider Family Medicine; PCP Family Medicine; Referring Provider Physical Medicine & Rehabilitation; Visit Provider Physical Medicine & Rehabilitation
DX: M47.816 Spondylosis without myelopathy or radiculopathy, lumbar region (principal); M47.817 Spondylosis without myelopathy or radiculopathy, lumbosacral region
CPT/HCPCS: 64635; 64636; 99152; 99153; J0461; J2250; J2405; J3010; J7040

== ENCOUNTER 2025-04-03 11:52 | Emergency (ER) | payer MEDICARE, OTHER, SELFPAY ==
[2025-01-28 15:01] VITALS: BMI 27.8
--- OUTSIDE RECORDS SUMMARY | 2025-04-03 11:55 | XMS_ITS | Encounter Summary ---
Author Organization [facility] Address [address] [place] [address] Care Team Providers Care Health Service Coordinator Name Role Phone Adnrea Nevarez MD Primary Care Provider [phone] Reason for Referral * Speech Pathology (Routine) - Closed Specialty Diagnoses / Procedures Referred By Contac t Referred To Contact Speech Pathology / Speech Therapy Diagnoses Esophageal dysmotility Andrea Nevarez MD [address] [place] [address] Phone: tel: fax: Referral ID Status Reason Start Date Expiration Date V isits Requested Visits Authorized [id number] Closed Specialty Services Required 10/30/2022 01/19/2023 12 12 Encounter Details Date Type Department Care Team (Latest Contact Info) Description 10/30/2022 Transcribe Orders [facility] Speech Therapy [address] [place] [phone] Andrea Nevarez MD [address] [place] [id number] Esophageal dysmotility (Primary Dx) Social History Tobacco Use Types Packs/Day Years Used Date Smoking Tobacco: Never Smokeless Tobacco: Never Sex and Gender Information Value Date Recorded Sex Assigned at Not on file Legal Sex Male 4:49 PM PDT Gender Identity Not on file Sexual Orientation Not on file documented as of this encounter Plan of Treatment Upcoming Encounters Date Type Department Care Team (Late Contact Info) Description 04/20/2025 8:40 AM PST Telemedicine [facility] Cardiology [place] [address] [place] [address], [address] [place] [phone] Wil Marion MD [address] [place] [address] [address] [place], [place] [phone] Scheduled Referrals Name Type Priority Associated Diagnoses Orde r Schedule Referral to Speech Therapy Outpatient Referral Routine Esophageal dysmotility 1 Occurrences starting 10/30/2022 until 10/31/2023 documented as of this encounter Visit Diagnoses Diagnosis Esophageal dysmotility- Primary Dyskinesia of esophagus documented in this encounter Care Teams Health Service Coordinator Relationship Specialty Start Date End Date Andrea Nevarez MD [address] [place] [address] [place] [address] PCP - General Family Medicine 03/13/25 documented as of this encounter
[2025-04-03 12:03] VITALS: BP 149/75; PULSE 70; RESP 18; TEMP 36.2; O2SAT 100; BMI 26.4
--- NOTE | 2025-04-03 12:07 | DI.RAD.S_ITS ---
PROCEDURE: XR CHEST 1V INDICATIONS: Chest Pain TECHNIQUE: One view of the chest was acquired. COMPARISON: [facility], CR, XR CHEST 2V, 08/11/2024, 15:09. FINDINGS: Surgical changes and devices: None. Lungs and pleura: Lungs are clear. No pleural effusions or pneumothorax. Mediastinum: Mediastinal contours appear normal. Heart size is normal. Bones and chest wall: No suspicious bony lesions. Overlying soft tissues appear unremarkable. IMPRESSION: No acute cardiopulmonary pathology. Dictated by: Jeremiah Bragg M.D. on 04/03/2025 at 12:31 Approved by: Jeremiah Bragg M.D. on 04/03/2025 at 12:31
--- NOTE | 2025-04-03 12:07 | EKG_ITS ---
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
[2025-04-03 12:37] LABS: Add Manual Diff / Slide Review NO; Hematocrit 43.2 % (41-53); Hemoglobin 15.0 g/dL (13.5-17.5); Lymphocytes Absolute Auto 1300 /uL (1100-4500); Mean Corpuscular HGB Conc 34.8 % (30-36); Mean Corpuscular Hemoglobin 31.9 PG (26-34); Mean Corpuscular Volume 91.9 fL (80-100); Platelet Count 216 X10^3/uL (150-400)
[2025-04-03 12:38] LABS: INR 1.0 (0.9-1.3); Prothrombin Time 11.3 SECONDS (9.4-12.5)
[2025-04-03 12:40] LABS: PTT Partial Thromboplastin Tim 29 SECONDS (25.1-36.5)
[2025-04-03 12:46] LABS: Alanine Aminotransferase 71 IU/L (<50); Albumin 4.5 g/dL (3.5-5.0); Albumin Globulin Ratio 1.8 (1.0-2.8); Alkaline Phosphatase 41 U/L (38-126); Blood Urea Nitrogen 20 mg/dL (9-20); Calcium 9.3 mg/dL (8.4-10.2); Carbon Dioxide 27 mmol/L (22-32); Chloride 104 mmol/L (98-107); Creatine Kinase 66 U/L (55-170); Estimated Glomerular Filt Rate > 60 mL/min (>60); Globulin 2.5 g/dL (1.7-4.1); Glucose 93 mg/dL (70-99); HEMOLYSIS < 15 (0-50); Lipase 106 U/L (23-300); Magnesium 2.0 mg/dL (1.6-2.3); Potassium 4.1 mmol/L (3.4-5.1); Sodium 139 mmol/L (137-145); Total Protein 7.0 g/dL (6.3-8.2)
[2025-04-03 12:57] LABS: NT-proBNP (BNP-Adult 18+) < 20 pg/mL (<125); Troponin I < 0.012 ng/mL (0.01-0.034)
[2025-04-03 14:59] LABS: Troponin I < 0.012 ng/mL (0.01-0.034)
[2025-04-03 15:13] VITALS: BP 160/82; PULSE 69; RESP 16; O2SAT 99
--- NOTE | 2025-04-03 15:37 | ED.CHESTPAIN ---
HPI - Chest Pain General Chief Complaint: Chest Pain Stated Complaint: chest pain, worsening over wks, PC ref Time Seen by Provider: 04/03/25 15:14 Source: patient Mode of arrival: Ambulatory Limitations: no limitations History of Present Illness HPI narrative: 64-year-old gentleman CAD no longer on aspirin with history of dyslipidemia cardiac stent depression anxiety had stress echo mar 25 negative had good exercise capacity presents with intermittent chest pain ongoing for the past few weeks. Still having sharp jabbing pain in the chest pain. Denies diaphoresis, n/v. Has appointment Apr [address] Marion. Other than what is stated 14 pt ROS is negative. Related Data Home Medications ?Medication ?Instructions ?Recorded ?Confirmed ezetimibe 10 mg tablet (Zetia) 10 mg PO QDAY #30 tabs 12/28/15 02/09/25 nitroglycerin 0.4 mg sublingual 0.4 mg sublingual PRN PRN Chest 12/18/16 02/09/25 tablet (Nitrostat) Pain ##0 verapamil 120 mg tablet,extended 1 tab PO QDAY ##0 12/19/16 02/09/25 release pramipexole 0.25 mg tablet 0.25 mg PO DAILY 06/01/21 02/09/25 rosuvastatin 40 mg tablet 40 mg PO ONCE 06/01/21 02/09/25 sumatriptan succinate 25 mg tablet 25 mg PO ONCE 02/22/22 02/09/25 triamcinolone acetonide 0.1 % dental 12/10/24 02/09/25 dental paste Previous Rx's ?Medication ?Instructions ?Recorded alprazolam 0.5 mg tablet (Xanax) 0.5 mg PO .COMPLEX PRN Pre MRI or 02/09/25 Procedure #5 tabs gabapentin 300 mg capsule 600 mg (2 x 300 mg) PO BEDTIME #90 02/09/25 caps tramadol 50 mg tablet 50 mg PO BID PRN pain #42 tabs 02/09/25 piroxicam 20 mg capsule (Feldene) 20 mg PO DAILY #30 caps 03/19/25 isosorbide mononitrate 30 mg 30 mg PO DAILY #30 tabs 04/03/25 tablet,extended release 24 hr Allergies Allergy/AdvReac Type Severity Reaction Status Date / Time No Known Drug Allergies Allergy Verified 04/03/25 12:03 Review of Systems Review of Systems ROS Unobtainable: All systems reviewed & are unremarkable except as noted in HPI and below Patient History Medical History Acute coronary syndrome Anxiety Facet arthropathy, lumbar Herniated nucleus pulposus, lumbar Lumbar radiculopathy Family History Brother Heart disease Social History household members: spouse Smoking Status: Never smoker Smoking Status: Never smoker alcohol intake frequency: a few times a week Alcohol type: wine Exam Narrative Exam Narrative: GENERAL: [64year old patient appears stated age. Well-developed patient, in mild distress. HEAD: Atraumatic. Normocephalic. EYES: Pupils equal round and reactive. Extraocular motions intact. No scleral icterus. No injection or drainage. ENT: Nose without bleeding, purulent drainage. Throat without erythema, tonsillar hypertrophy or exudate. Airway patent. NECK: Trachea midline. Non tender CARDIOVASCULAR: Regular rate and rhythm without murmurs, gallops, or rubs. RESPIRATORY: Clear to auscultation. Breath sounds equal bilaterally. No wheezes, rales, or rhonchi. GASTROINTESTINAL: Abdomen soft, non-tender, nondistended. EXTREMITIES: No edema or joint tenderness. BACK: Nontender without deformity or crepitance. No flank tenderness. NEURO: AOx3. SKIN: No rash or erythema of visible areas Initial Vital Signs Initial Vital Signs: Vital Signs Temperature 97.1 F L 04/03/25 12:03 Pulse Rate 70 04/03/25 12:03 Respiratory Rate 18 04/03/25 12:03 Blood Pressure 149/75 H 04/03/25 12:03 Pulse Oximetry 100 04/03/25 12:03 Oxygen Delivery Method Room Air 04/03/25 12:03 Scores HEART Score Heart Score history: Moderately Suspicious Heart Score EKG: Non-Specific repolarization disturbance Heart Score Age: > or = 65 years old Heart Score risk factors: > 3 risk factors or hx of atherosclerotic disease Heart Score troponin: < or = to normal limit Heart Score Total: 6 Course Orders Ordered: ED Orders 04/03/25 12:07 XR chest 1V Stat EKG-12 Lead Stat 04/03/25 12:22 Complete Blood Count AUTO DIFF Stat Comprehensive Metabolic Panel Stat Lipase Stat Magnesium Stat NT-proBNP (BNP-Adult 18+) Stat PTT Partial Thromboplastin [place] Stat Prothrombin Time INR Stat Troponin & CK Cardiac Panel Stat 04/03/25 14:30 Trop I [Troponin I] Stat Discontinued Medications Aspirin (Aspirin 81 Mg Chew Tab) 324 mg PO NOW ONE Stop: 04/03/25 12:08 Nitroglycerin (Nitroglycerin 0.4 Mg Sl Tab) 0.4 mg SL NOW ONE Stop: 04/03/25 15:45 Last Admin: 04/03/25 15:47 Dose: 0.4 mg Documented By: KLARISSA Vital Signs Vital signs: Vital Signs - 8 hr 04/03/25 12:03 04/03/25 15:13 04/03/25 15:47 Temperature 97.1 F L Pulse Rate 70 69 70 Respiratory Rate 18 16 Blood Pressure 149/75 H 160/82 H 170/60 H Pulse Oximetry 100 99 Oxygen Delivery Method Room Air Room Air MDM - Chest Pain Lab Data 04/03/25 12:22 04/03/25 12:22 Labs: Lab Results 04/03/25 04/03/25 Range/Units 12:22 14:30 WBC 5.3 (4.5-11.0) X10^3/uL RBC 4.70 (4.5-5.9) X10^6/uL Hgb 15.0 (13.5-17.5) g/dL Hct 43.2 (41-53) % MCV 91.9 (80-100) fL MCH 31.9 (26-34) PG MCHC 34.8 (30-36) % RDW 12.4 (11.6-14.8) % Plt Count 216 (150-400) X10^3/uL Neut % (Auto) 63.1 (50-75) % Lymph % (Auto) 25.5 (25-40) % [place] % (Auto) 8.3 (3-14) % Eos % (Auto) 2.3 (2-4) % Baso % (Auto) 0.8 (0-2) % Neut # (Auto) 3300 (8377-6611) /uL Lymph # (Auto) 1300 (8117-4346) /uL [place] # (Auto) 400 (0-900) /uL Eos # (Auto) 100 (0-450) /uL Baso # (Auto) 0 (0-100) /uL PT 11.3 (9.4-12.5) SECONDS INR 1.0 (0.9-1.3) APTT 29 (25.1-36.5) SECONDS Sodium 139 (137-145) mmol/L Potassium 4.1 (3.4-5.1) mmol/L Chloride 104 (98-107) mmol/L Carbon Dioxide 27 (22-32) mmol/L BUN 20 (9-20) mg/dL Creatinine 0.91 (0.66-1.25) mg/dL Estimated GFR > 60 (>60) mL/min BUN/Creatinine Ratio 22.0 (6-22) Glucose 93 (70-99) mg/dL Calcium 9.3 (8.4-10.2) mg/dL Magnesium 2.0 (1.6-2.3) mg/dL Total Bilirubin 0.7 (0.2-1.3) mg/dL AST 43 (17-59) IU/L ALT 71 H (<50) IU/L Alkaline Phosphatase 41 (38-126) U/L Total Creatine Kinase 66 (55-170) U/L Troponin I < 0.012 < 0.012 (0.01-0.034) ng/mL NT-Pro-B Natriuret Pep < 20 (<125) pg/mL Total Protein 7.0 (6.3-8.2) g/dL Albumin 4.5 (3.5-5.0) g/dL Globulin 2.5 (1.7-4.1) g/dL Albumin/Globulin Ratio 1.8 (1.0-2.8) Lipase 106 (23-300) U/L ECG Data Interpretation: NSR HR 71 VA 184 QRS [address]-t wave change Change from 10/22/22 [facility] Narrative Medical decision making narrative: All lab work, vital signs, nurse triage note, medication list, previous ER visits, and all imaging studies reviewed. Two sets troponin normal. Pt given nitro here and 3 baby asa pain had eased up now. 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 EKG shows no ischemic changes. NO st-t wave changes. Differential diagnosis STEMI NSTEMI unstable angina GERD anxiety Discharge Plan Departure Patient Disposition: Home Clinical Impression: Chest pain Instructions: DI for Chest Pain Activity Restrictions/Additional Instructions: Return with new or worsening symptoms. 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 Take medicines as directed. Prescriptions: New isosorbide mononitrate 30 mg tablet extended release 24 hr 30 mg PO DAILY Qty: 30 0RF No Action ezetimibe [Zetia] 10 MG tablet 10 mg PO QDAY Qty: 30 nitroglycerin [Nitrostat] 0.4 MG tablet, sublingual 0.4 mg Sublingual PRN PRN (Reason: Chest Pain) Qty: 0 verapamil 120 MG tablet extended release 1 tab PO QDAY Qty: 0 piroxicam [Feldene] 20 mg capsule 20 mg PO DAILY Qty: 30 2RF rosuvastatin 40 mg tablet 40 mg PO ONCE Patient Comments: BEDTIME pramipexole 0.25 mg tablet 0.25 mg PO DAILY Patient Comments: QAM sumatriptan succinate 25 mg tablet 25 mg PO ONCE triamcinolone acetonide 0.1 % paste dental tramadol 50 mg tablet 50 mg PO BID PRN (Reason: pain) Qty: 42 1RF alprazolam [Xanax] 0.5 mg tablet 0.5 mg PO .COMPLEX MDD 2 PRN (Reason: Pre MRI or Procedure) Qty: 5 0RF Rx Instructions: 0.5 mg orally 1-2 prior to procedure or MRI PRN; gabapentin 300 mg capsule 600 mg PO BEDTIME Qty: 90 3RF Referrals: Andrea Nevarez MD [Primary Care Provider, Family Practice] Stand Alone Forms: Patient Portal/API
[2025-04-03 15:47] VITALS: BP 170/60; PULSE 70
[2025-04-03] MEDS: NITROGLYCERIN 0.4 MG SL TAB SL (15:47)
[2025-04-03] MEDS: ASPIRIN 81 MG CHEW TAB 324 MG PO (15:58)
[2025-04-03 16:21] VITALS: BP 174/93; PULSE 61; RESP 20; O2SAT 98
== END 2025-04-03 16:22 | disposition home or self-care (01) ==
PROVIDERS: Emergency Provider Family Medicine; Family Provider Family Medicine; PCP Family Medicine
DX: R07.89 Other chest pain (principal)
CPT/HCPCS: 36415; 71045; 80053; 82550; 83690; 83735; 83880; 84484; 85025; 85610; 85730; 93005; 99283; 99284